=== PATIENT | female | born 2000 | race African-American/Black ===

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

== ENCOUNTER 2018-01-31 21:18 | Emergency (ER) | payer MEDICAID ==
[2018-01-31 23:38] LABS: ABSOLUTE BASOPHILS # (AUTO) 0.1 10^3/uL (0.0-0.2); ABSOLUTE EOSINOPHILS # (AUTO) 1.1 10^3/uL (0.0-0.6); ABSOLUTE LYMPHOCYTES (AUTO) 2.7 10^3/uL (0.5-4.7); ABSOLUTE MONOCYTES (AUTO) 0.8 10^3/uL (0.1-1.4); ABSOLUTE NEUT (AUTO) 4.4 10^3/uL (1.7-8.2); BASOPHILS % (AUTO) 0.8 % (0-2); EOSINOPHILS % (AUTO) 12.5 % (0-6); HEMATOCRIT 36.2 % (36.0-47.0); HEMOGLOBIN 12.1 g/dL (12.0-15.5); MEAN CORPUSCULAR HEMOGLOBIN 29.6 pg (27.0-33.4); MEAN CORPUSCULAR HGB CONC 33.5 g/dL (32.0-36.0); MEAN CORPUSCULAR VOLUME 88 fl (80-97); MONOCYTES % (AUTO) 8.4 % (3-13); PLATELET COUNT 287 10^3/uL (150-450); RED CELL DISTRIBUTION WIDTH 13.4 % (11.5-14.0); SEGMENTED NEUTROPHILS % (AUTO) 48.3 % (42-78); TOTAL CELLS COUNTED % (AUTO) 100 %; WHITE BLOOD COUNT 9.1 10^3/uL (4.0-10.5)
[2018-01-31 23:57] LABS: ALANINE AMINOTRANSFERASE 19 U/L (5-35); ALBUMIN 4.7 g/dL (3.7-5.6); ALKALINE PHOSPHATASE 67 U/L (50-135); ANION GAP 8 (5-19); ASPARTATE AMINO TRANSFERASE 19 U/L (5-30); BILIRUBIN,DIRECT 0.2 mg/dL (0.0-0.4); BILIRUBIN,TOTAL 0.7 mg/dL (0.2-1.3); BLOOD UREA NITROGEN 6 mg/dL (7-20); CALCIUM 9.9 mg/dL (8.4-10.2); CARBON DIOXIDE 26 mmol/L (22-30); CHLORIDE 107 mmol/L (98-107); GLUCOSE 107 mg/dL (75-110); POTASSIUM 3.6 mmol/L (3.6-5.0); SODIUM 141.2 mmol/L (137-145)
[2018-01-31 23:58] LABS: LIPASE 47.8 U/L (23-300)
--- NOTE | 2018-02-01 00:02 | ER Document Report ---
ED Medical Screen (RME) - General Chief Complaint: Pelvic Pain Stated Complaint: STOMACH/PELVIC PAIN Time Seen by Provider: 01/31/18 23:57 Notes: 17-year-old female, chief complaint of worsening pelvic and lower abdominal pain for the past 3 days, does report some vaginal discharge and dysuria, denies fever, nausea vomiting. Sexually active. No surgeries or medical history reported. TRAVEL OUTSIDE OF THE [place] IN LAST 30 DAYS: No - Related Data Allergies/Adverse Reactions: No Known Allergies Allergy (Unverified 02/09/17 04:30) Past Medical History Renal/ Medical History: Denies: Hx Peritoneal Dialysis Physical Exam - Vital signs Vitals: Temp Pulse Resp BP Pulse Ox 98.3 F 91 H 16 139/87 H 100 01/31/18 21:44 01/31/18 21:44 01/31/18 21:44 01/31/18 21:44 01/31/18 21:44 - Abdominal Tenderness: Tender - Generalized suprapubic and lower abdominal tenderness, no guarding or severe tenderness, exam limited by sitting position Course - Re-evaluation Re-evalutation: Protocol had already been put in and is running. I have greeted and performed a rapid initial assessment of this patient. A comprehensive ED assessment and evaluation of the patient, analysis of test results and completion of the medical decision making process will be conducted by additional ED providers. - Vital Signs Vital signs: Temp Pulse Resp BP Pulse Ox 98.3 F 91 H 16 139/87 H 100 01/31/18 21:44 01/31/18 21:44 01/31/18 21:44 01/31/18 21:44 01/31/18 21:44 - Laboratory Result Diagrams: 01/31/18 23:27 01/31/18 23:27 Laboratory results interpreted by me: 01/31/18 01/31/18 23:27 23:27 Eosinophils % 12.5 H Absolute Eosinophils 1.1 H BUN 6 L Doctor's Discharge - Discharge Referrals: MAXINE LOPEZ MD [Primary Care Provider] - Follow up as needed
[2018-02-01 00:21] LABS: APPEARANCE,URINE CLEAR; BILIRUBIN,URINE NEGATIVE (NEGATIVE); GLUCOSE, URINE NEGATIVE (NEGATIVE); KETONES,URINE TRACE mg/dL (NEGATIVE); LEUKOCYTE ESTERASE,URINE SMALL (NEGATIVE); NITRITE,URINE NEGATIVE (NEGATIVE); PROTEIN,URINE NEGATIVE (NEGATIVE); URINE SPECIFIC GRAVITY 1.027
[2018-02-01 00:23] LABS: COLOR,URINE YELLOW
[2018-02-01 01:45] LABS: BACTERIA (WET MOUNT) 3+ BACTERIA SEEN; EPITHELIALS (WET MOUNT) 3+ EPITHELIALS SEEN; RBCS (WET MOUNT) 1+ RBCS SEEN; T.VAGINALIS (WET MOUNT) NO TRICHOMONAS SEEN; WBCS (WET MOUNT) 3+ WBCS SEEN; YEAST (WET MOUNT) NO YEAST SEEN
[2018-02-01] MEDS ORDERED: CEFTRIAXONE INJ 250 MG VIAL IM ONE (01:54)
[2018-02-01] MEDS ORDERED: LIDOCAINE 1% INJ-PF (10 MG/ML) 30 ML SDV INJ ONE (01:54)
[2018-02-01] MEDS ORDERED: VALACYCLOVIR HCL 500 MG TABLET PO ONE (01:54)
[2018-02-01] MEDS ORDERED: AZITHROMYCIN 250 MG TABLET PO ONE (01:54)
--- NOTE | 2018-02-01 01:57 | ER Document Report ---
ED General - General Chief Complaint: Pelvic Pain Stated Complaint: STOMACH/PELVIC PAIN Time Seen by Provider: 01/31/18 23:57 Notes: Patient is a 17-year-old female without past medical history, no prior surgical history who presents with approximately 1 week of progressively worsening vaginal and pelvic pain. The patient reports that shortly after having intercourse with her significant other she began to develop ulcerating external and internal vaginal lesions that are noted to be extremely painful. She describes the pain as a burning, stinging sensation. Pain is worsened by any touching of the area. Nothing improves the pain. She denies any history of similar symptoms in the past. She also notes a cramping, aching pain to her lower pelvic region. Again nothing improves or worsens this pain. She has not seen her general doctor regarding today's concerns. She denies any fever or constitutional symptoms. No dysuria or vaginal bleeding. TRAVEL OUTSIDE OF THE [place] IN LAST 30 DAYS: No - Related Data Allergies/Adverse Reactions: No Known Allergies Allergy (Unverified 02/09/17 04:30) Past Medical History - General Information source: Patient - Social History Smoking Status: Never Smoker Frequency of alcohol use: None Drug Abuse: None Lives with: Family Family History: Reviewed & Not Pertinent Patient has suicidal ideation: No Patient has homicidal ideation: No Renal/ Medical History: Denies: Hx Peritoneal Dialysis Review of Systems - Review of Systems Notes: Constitutional: Negative for fever. HENT: Negative for sore throat. Eyes: Negative for visual changes. Cardiovascular: Negative for chest pain. Respiratory: Negative for shortness of breath. Gastrointestinal: Negative for abdominal pain, vomiting or diarrhea. Genitourinary: Positive for vaginal lesions and pelvic pain Musculoskeletal: Negative for back pain. Skin: Negative for rash. Neurological: Negative for headaches, weakness or numbness. 10 point ROS negative except as marked above and in HPI. Physical Exam - Vital signs Vitals: Temp Pulse Resp BP Pulse Ox 98.3 F 91 H 16 139/87 H 100 01/31/18 21:44 01/31/18 21:44 01/31/18 21:44 01/31/18 21:44 01/31/18 21:44 Interpretation: Normal Notes: PHYSICAL EXAMINATION: GENERAL: Well-appearing, well-nourished and in no acute distress. HEAD: Atraumatic, normocephalic. EYES: Pupils equal round and reactive to light, extraocular movements intact, sclera anicteric, conjunctiva are normal. ENT: nares patent, oropharynx clear without exudates. Moist mucous membranes. NECK: Normal range of motion, supple without lymphadenopathy LUNGS: Breath sounds clear to auscultation bilaterally and equal. No wheezes rales or rhonchi. HEART: Regular rate and rhythm without murmurs ABDOMEN: Soft, nontender, normoactive bowel sounds. No guarding, no rebound. No masses appreciated. : Multiple vesicular, herpetic lesions on the labia majora and minora bilaterally. Pelvic examination shows several vesicular lesions on the vaginal introitus. No cervical lesions or bleeding. No cervical motion tenderness. No adnexal tenderness. EXTREMITIES: Normal range of motion, no pitting or edema. No cyanosis. NEUROLOGICAL: No focal neurological deficits. Moves all extremities spontaneously and on command. PSYCH: Normal mood, normal affect. SKIN: Warm, Dry, normal turgor, no rashes or lesions noted. Course - Re-evaluation Re-evalutation: 02/01/18 01:56 Patient presents with complaints of vaginal and pelvic pain that started approximately several days after she had intercourse with her boyfriend that has been getting progressively worse. Patient is noted to have findings consistent with genital herpes on pelvic examination. No cervical motion tenderness or adnexal tenderness. No abdominal tenderness on palpation to suggest tubo-ovarian abscess or pelvic inflammatory disease. Clinical history and exam likewise not notable for findings consistent with appendicitis. She has no upper abdominal tenderness to suggest biliary pathology, pancreatitis, gastritis. Patient has been started on valacyclovir, empirically treated for gonorrhea and chlamydia. I instructed her follow-up with health department for sexual transmitted infection testing. At this time will discharge with return precautions and follow-up recommendations. Verbal discharge instructions given a the bedside and opportunity for questions given. Medication warnings reviewed. Patient is in agreement with this plan and has verbalized understanding of return precautions and the need for primary care follow-up in the next 24-72 hours. - Vital Signs Vital signs: Temp Pulse Resp BP Pulse Ox 97.8 F 88 16 124/81 99 02/01/18 02:16 02/01/18 02:16 01/31/18 21:44 02/01/18 02:16 02/01/18 02:16 - Laboratory Result Diagrams: 01/31/18 23:27 01/31/18 23:27 Laboratory results interpreted by me: 01/31/18 01/31/18 02/01/18 23:27 23:27 00:07 Eosinophils % 12.5 H Absolute Eosinophils 1.1 H BUN 6 L Urine Ketones TRACE H Urine Urobilinogen 4.0 H Ur Leukocyte Esterase SMALL H Discharge - Discharge Clinical Impression: Pelvic pain, Vaginal discharge Genital herpes Qualifiers: Herpes simplex infection site: vulvovaginitis Qualified Code(s): A60.04 - Herpesviral vulvovaginitis Condition: Good Disposition: HOME, SELF-CARE Additional Instructions: You need to use protection every time you have sex. Failure to do so can result in transmission of infections or unintended . You have been treated for an sexually transmitted infection (STI) today. All of your partners should be tested and treated as they are also likely to be infected. Please return if you develop abdominal pain, fever, persistent vomiting, or any other symptoms that are concerning to you. Please follow-up at the local health department for STI testing. Address: [address] [place] [address] Hours: Sun-Sun 8am-4pm Thurs 12p-4p Fri 8a-4p Prescriptions: Valacyclovir HCl [Valacyclovir] 1,000 mg PO BID #20 tablet Referrals: MAXINE LOPEZ MD [Primary Care Provider] - Follow up as needed
[2018-02-01 02:23] VITALS: BP 124/81
[2018-02-01 03:15] LABS: CHLAM PCR NOT DETECTED (NOT DETECT); GON PCR NOT DETECTED (NOT DETECT)
== END 2018-02-01 02:23 | disposition home or self-care (01) ==
LOC: ER 21:18
DX: A60.04 Herpesviral vulvovaginitis (principal); N89.8 Other specified noninflammatory disorders of vagina; R10.2 Pelvic and perineal pain
CPT/HCPCS: 99284; 96372; 36415; 87210; 83690; 84703; 85025; 80053; 81001; 87491; 87591; Q0144; J3490 ×2; J0696

== ENCOUNTER 2018-09-01 00:21 | Emergency (ER) | payer MEDICAID ==
[2018-09-01 00:28] VITALS: BP 154/97
[2018-09-01] MEDS ORDERED: NORMAL SALINE 1000 ML 1,000 ML IV ONE ×2 (00:44→01:41)
--- NOTE | 2018-09-01 00:48 | ER Document Report ---
ED General - General Chief Complaint: Abdominal Pain Stated Complaint: ABDOMINAL PAIN/ Time Seen by Provider: 09/01/18 00:36 Primary Care Provider: [facility] [Provider Group] - Follow up in 3-5 days MAXINE LOPEZ MD [Primary Care Provider] - Follow up as needed LISA COLLINS MD [ACTIVE STAFF] - 09/02/18 TRAVEL OUTSIDE OF THE [place] IN LAST 30 DAYS: No - HPI Notes: Patient is a 18-year-old female at 12 weeks gestation that presents to the emergency department for chief complaint of palpitations and vaginal bleeding. Patient reports about 8 episodes of palpitations. She states that she will be up walking around or sitting at rest and feel her heart began to race. She states it beats very fast for about 3-4 minutes and then completely resolves. When her heart is racing she feels associated lightheadedness but has not had any syncope. She denies history of dysrhythmia or palpitations in the past. She denies history of anxiety or panic attacks previously. She is currently asymptomatic. She denies associated chest pain, fevers, cough and congestion. She states this evening she had one episode of pink vaginal bleeding. She has not had any complications with this and has had early ultrasound to confirm single intrauterine gestation. Patient believes the bleeding has currently stopped. She denies any other vaginal discharge, abdominal pain, back pain, dysuria or urinary frequency. She denies any family history of DVT/PE or cardiac issues. Past Medical History: Negative Past Surgical History: Negative Social History: Denies drugs alcohol and tobacco Family History: Reviewed and noncontributory for presenting illness Allergies: Reviewed, see documented allergy list. REVIEW OF SYSTEMS: CONSTITUTIONAL : No fever No chills No diaphoresis No recent illness EENT: No vision changes No congestion No sore throat CARDIOVASCULAR: No chest pain palpitations RESPIRATORY: No shortness of breath No cough No difficulty breathing GASTROINTESTINAL: No abdominal pain No nausea No vomiting No diarrhea GENITOURINARY: No dysuria No hematuria No difficulty urinating MUSCULOSKELETAL: No back pain No leg pain No arm pain SKIN: No rashes No lesions LYMPHATIC: No swollen, enlarged glands. NEUROLOGICAL: lightheadedness No headache No weakness No paresthesias PSYCHIATRIC: No anxiety No depression PHYSICAL EXAMINATION: Vital signs reviewed, nursing noted reviewed. GENERAL: Well-appearing, well-nourished and in no acute distress. HEAD: Atraumatic, normocephalic. EYES: Eyes appear normal, extraocular movements intact, sclera anicteric, conjunctiva are normal. ENT: nares patent, oropharynx clear without exudates. Moist mucous membranes. NECK: Normal range of motion, supple without lymphadenopathy LUNGS: Breath sounds clear to auscultation bilaterally and equal. No wheezes rales or rhonchi. HEART: Tachycardic rate and regular rhythm without murmurs ABDOMEN: Soft, mild suprapubic tenderness, uterus palpated just above pubic symphysis and is soft, normoactive bowel sounds. No rebound, guarding, or rigidity. No masses appreciated. EXTREMITIES: Nontender, good range of motion, no pitting or edema. NEUROLOGICAL: No focal neurological deficits. Moves all extremities spontaneously Motor and sensory grossly intact on exam. PSYCH: Normal mood, normal affect. SKIN: Warm, Dry, normal turgor, no rashes or lesions noted on exposed skin - Related Data Allergies/Adverse Reactions: No Known Allergies Allergy (Verified 09/01/18 00:22) Past Medical History - Social History Smoking Status: Never Smoker Family History: Reviewed & Not Pertinent Renal/ Medical History: Denies: Hx Peritoneal Dialysis Physical Exam - Vital signs Vitals: Temp Pulse Resp BP Pulse Ox 98.6 F 124 H 16 154/97 H 99 09/01/18 00:27 09/01/18 00:27 09/01/18 00:27 09/01/18 00:27 09/01/18 00:27 Course - Re-evaluation Re-evalutation: 09/01/18 00:47 Vitals reviewed. Nursing notes reviewed. Patient states she is currently asymptomatic but is tachycardic with a sinus rhythm on EKG. 09/01/18 01:49 Patient reevaluated. She has not had any concerns of palpitations since being in the emergency room. She states she has been asymptomatic since arrival but feels improved generally after receiving 1 L of fluid. Her heart rate has been tachycardic since presentation but is improving with IV fluids. 09/01/18 03:39 Patient reevaluated and is feeling significantly better. She states she has not had any palpitations while in the emergency room. Her thyroid levels are normal. Her blood work shows no renal insufficiency. She was mildly hypokalemic and was given potassium and encouraged to eat potassium rich foods. Patient does have a urinary tract infection that will be treated with Macrobid, the first dose given in the ER. Ultrasound shows single live intrauterine gestation without complications. Patient was given Dr. Collins's phone number and told to follow-up tomorrow if she continues to have palpitations. She will return to the emergency room for any new or worsening symptoms. She will follow with her [facility] for her vaginal bleeding and UTI. She did receive RhoGam prior to discharge today. Laboratory 09/01/18 09/01/18 09/01/18 00:55 00:55 00:55 WBC 13.6 H RBC 4.03 Hgb 12.3 Hct 35.3 L MCV 88 MCH 30.5 MCHC 34.8 RDW 13.4 Plt Count 293 Seg Neutrophils % 64.9 Lymphocytes % 23.0 Monocytes % 6.7 Eosinophils % 5.1 Basophils % 0.3 Absolute Neutrophils 8.8 H Absolute Lymphocytes 3.1 Absolute Monocytes 0.9 Absolute Eosinophils 0.7 H Absolute Basophils 0.0 Sodium 139.1 Potassium 3.4 L Chloride 108 H Carbon Dioxide 18 L Anion Gap 13 BUN 9 Creatinine 0.63 Est GFR ( Amer) > 60 Est GFR (Non-Af Amer) > 60 Glucose 85 Calcium 10.6 H TSH 0.89 Urine Color Urine Appearance Urine pH Ur Specific [place] Urine Protein Urine Glucose (UA) Urine Ketones Urine Blood Urine Nitrite Urine Bilirubin Urine Urobilinogen Ur Leukocyte Esterase Urine WBC (Auto) Urine RBC (Auto) Squamous Epi Cells Auto Calcium Oxalate Cr Auto Urine Mucus (Auto) Urine Ascorbic Acid Blood Type Antibody Screen Rhogam Indicated 09/01/18 09/01/18 01:23 01:55 WBC RBC Hgb Hct MCV MCH MCHC RDW Plt Count Seg Neutrophils % Lymphocytes % Monocytes % Eosinophils % Basophils % Absolute Neutrophils Absolute Lymphocytes Absolute Monocytes Absolute Eosinophils Absolute Basophils Sodium Potassium Chloride Carbon Dioxide Anion Gap BUN Creatinine Est GFR ( Amer) Est GFR (Non-Af Amer) Glucose Calcium TSH Urine Color YELLOW Urine Appearance SLIGHTLY-CLOUDY Urine pH 5.0 Ur Specific [place] 1.026 Urine Protein NEGATIVE Urine Glucose (UA) NEGATIVE Urine Ketones 20 H Urine Blood NEGATIVE Urine Nitrite NEGATIVE Urine Bilirubin NEGATIVE Urine Urobilinogen 4.0 H Ur Leukocyte Esterase LARGE H Urine WBC (Auto) 8 Urine RBC (Auto) 3 Squamous Epi Cells Auto 3 Calcium Oxalate Cr Auto FEW Urine Mucus (Auto) OCC Urine Ascorbic Acid NEGATIVE Blood Type O NEGATIVE Antibody Screen NEGATIVE Rhogam Indicated RHOGAM REQUESTED Obstetrics Ultrasound 09/01/18 00:43 IMPRESSION: Living 1st trimester intrauterine gestation. No sonographic evidence of complication. - Vital Signs Vital signs: Temp Pulse Resp BP Pulse Ox 98.6 F 124 H 16 154/97 H 99 09/01/18 00:27 09/01/18 00:27 09/01/18 00:27 09/01/18 00:27 09/01/18 00:27 - Laboratory Result Diagrams: 09/01/18 00:55 09/01/18 00:55 Laboratory results interpreted by me: 09/01/18 09/01/18 09/01/18 00:55 00:55 01:55 WBC 13.6 H Hct 35.3 L Absolute Neutrophils 8.8 H Absolute Eosinophils 0.7 H Potassium 3.4 L Chloride 108 H Carbon Dioxide 18 L Calcium 10.6 H Urine Ketones 20 H Urine Urobilinogen 4.0 H Ur Leukocyte Esterase LARGE H - EKG Interpretation by Me Additional EKG results interpreted by me: 09/01/18 00:47 Interpreted by myself [id number]: Sinus tachycardia, rate 113, normal axis, no ectopy, no delta waves Discharge - Discharge Clinical Impression: Heart palpitations, Lightheadedness, Vaginal bleeding during , Acute UTI Condition: Stable Disposition: HOME, SELF-CARE Instructions: Palpitations (Irregular or Rapid Heartrate) ([facility]), Rhogam ([facility]), Threatened Miscarriage ([facility]), Urinary Tract Infection ([facility]) Additional Instructions: Please return to the emergency department if you have any worsening, or concern of your symptoms. Please return to the emergency department if you develop chest pain, difficulty breathing, severe abdominal pain, or ongoing vomiting. Please follow-up with your primary care physician in 2-3 days and any other recommended physicians. If prescribed, take all medications as directed. If you have any questions or concerns do not hesitate to return the emergency department for evaluation. Prescriptions: Nitrofurantoin Macrocrystal [Macrodantin] 100 mg PO Q6 10 Days capsule Referrals: MAXINE LOPEZ MD [Primary Care Provider] - Follow up as needed LISA COLLINS MD [ACTIVE STAFF] - 09/02/18 [facility] [Provider Group] - Follow up in 3-5 days
[2018-09-01 01:22] LABS: ANION GAP 13 (5-19); BLOOD UREA NITROGEN 9 mg/dL (7-20); CALCIUM 10.6 mg/dL (8.4-10.2); CARBON DIOXIDE 18 mmol/L (22-30); CHLORIDE 108 mmol/L (98-107); GLUCOSE 85 mg/dL (75-110); POTASSIUM 3.4 mmol/L (3.6-5.0); SODIUM 139.1 mmol/L (137-145)
[2018-09-01 01:27] LABS: ABSOLUTE EOSINOPHILS # (AUTO) 0.7 10^3/uL (0.0-0.6); ABSOLUTE LYMPHOCYTES (AUTO) 3.1 10^3/uL (0.5-4.7); ABSOLUTE MONOCYTES (AUTO) 0.9 10^3/uL (0.1-1.4); ABSOLUTE NEUT (AUTO) 8.8 10^3/uL (1.7-8.2); BASOPHILS % (AUTO) 0.3 % (0-2); EOSINOPHILS % (AUTO) 5.1 % (0-6); HEMATOCRIT 35.3 % (36.0-47.0); HEMOGLOBIN 12.3 g/dL (12.0-15.5); MEAN CORPUSCULAR HEMOGLOBIN 30.5 pg (27.0-33.4); MEAN CORPUSCULAR HGB CONC 34.8 g/dL (32.0-36.0); MEAN CORPUSCULAR VOLUME 88 fl (80-97); MONOCYTES % (AUTO) 6.7 % (3-13); PLATELET COUNT 293 10^3/uL (150-450); RED BLOOD COUNT 4.03 10^6/uL (3.72-5.28); RED CELL DISTRIBUTION WIDTH 13.4 % (11.5-14.0); SEGMENTED NEUTROPHILS % (AUTO) 64.9 % (42-78); TOTAL CELLS COUNTED % (AUTO) 100 %; WHITE BLOOD COUNT 13.6 10^3/uL (4.0-10.5)
[2018-09-01] MEDS ORDERED: POTASSIUM CHLORIDE 10 MEQ CAPSULE.ER PO ONE (01:29)
[2018-09-01 03:05] LABS: APPEARANCE,URINE SLIGHTLY-CLOUDY; BILIRUBIN,URINE NEGATIVE (NEGATIVE); CALCIUM OXALATE CRYSTALS,URINE FEW /HPF; COLOR,URINE YELLOW; GLUCOSE, URINE NEGATIVE (NEGATIVE); KETONES,URINE 20 mg/dL (NEGATIVE); LEUKOCYTE ESTERASE,URINE LARGE (NEGATIVE); NITRITE,URINE NEGATIVE (NEGATIVE); PROTEIN,URINE NEGATIVE (NEGATIVE); URINE SPECIFIC GRAVITY 1.026
--- NOTE | 2018-09-01 03:32 | RADIOLOGY REPORT (SQ) ---
EXAM DESCRIPTION: US LESS THAN 14 WEEKS COMPLETED DATE/TME: 09/01/2018 00:43 CLINICAL HISTORY: 18 years Female, vaginal bleeding COMPARISON: None TECHNIQUE: Transvaginal. LIMITATIONS: None. FINDINGS: Living intrauterine fetus measures 12w4d with YOSELIN of 03/12/2019. Cardiac activity is 173-bpm. [place]-rump length 6.19-cm. Nonvisualized ovaries, 3.2-cm cervical length, and no discerned free fluid. IMPRESSION: Living 1st trimester intrauterine gestation. No sonographic evidence of complication.
--- NOTE | 2018-09-01 09:51 | EKG REPORT ---
SEVERITY:- BORDERLINE ECG - SINUS TACHYCARDIA BORDERLINE T ABNORMALITIES, INFERIOR LEADS : Confirmed by: Eddie Moulton MD 01-Sep-2018 09:50:48
== END 2018-09-01 04:23 | disposition home or self-care (01) ==
LOC: ER 00:21
DX: O46.91 Antepartum hemorrhage, unspecified, first trimester (principal); O23.41 Unspecified infection of urinary tract in pregnancy, first trimester; O26.891 Other specified pregnancy related conditions, first trimester; R10.9 Unspecified abdominal pain; R00.2 Palpitations; R42 Dizziness and giddiness; Z3A.12 12 weeks gestation of pregnancy
CPT/HCPCS: 93005; 99284; 96372; 96360; 86900; 86901; 36415; 86850; 84443; 85025; 80048; 81001; 76801; 93010; J2790; J7030

== ENCOUNTER 2018-11-30 22:47 | Outpatient (CLI) | payer MEDICAID ==
[2018-11-30] MEDS ORDERED: ONDANSETRON HCL INJ/PF 4 MG/2 ML SDV IV PRN (23:02)
[2018-11-30 23:24] LABS: ABSOLUTE BASOPHILS # (AUTO) 0.1 10^3/uL (0.0-0.2); ABSOLUTE EOSINOPHILS # (AUTO) 0.5 10^3/uL (0.0-0.6); ABSOLUTE LYMPHOCYTES (AUTO) 2.5 10^3/uL (0.5-4.7); ABSOLUTE MONOCYTES (AUTO) 0.8 10^3/uL (0.1-1.4); ABSOLUTE NEUT (AUTO) 8.6 10^3/uL (1.7-8.2); BASOPHILS % (AUTO) 0.4 % (0-2); EOSINOPHILS % (AUTO) 4.2 % (0-6); HEMATOCRIT 30.3 % (36.0-47.0); HEMOGLOBIN 10.2 g/dL (12.0-15.5); LYMPHOCYTES % (AUTO) 19.8 % (13-45); MEAN CORPUSCULAR HEMOGLOBIN 30.5 pg (27.0-33.4); MEAN CORPUSCULAR HGB CONC 33.8 g/dL (32.0-36.0); MEAN CORPUSCULAR VOLUME 90 fl (80-97); MONOCYTES % (AUTO) 6.5 % (3-13); PLATELET COUNT 218 10^3/uL (150-450); RED BLOOD COUNT 3.36 10^6/uL (3.72-5.28); SEGMENTED NEUTROPHILS % (AUTO) 69.1 % (42-78); TOTAL CELLS COUNTED % (AUTO) 100 %; WHITE BLOOD COUNT 12.5 10^3/uL (4.0-10.5)
[2018-11-30 23:28] LABS: BACTERIA (WET MOUNT) 4+ BACTERIA SEEN; EPITHELIALS (WET MOUNT) 4+ EPITHELIALS SEEN; RBCS (WET MOUNT) NO RBCS SEEN; T.VAGINALIS (WET MOUNT) NO TRICHOMONAS SEEN; WBCS (WET MOUNT) 3+ WBCS SEEN; YEAST (WET MOUNT) NO YEAST SEEN
[2018-11-30 23:39] LABS: CALCIUM OXALATE CRYSTALS,URINE FEW /HPF
[2018-11-30 23:41] LABS: APPEARANCE,URINE HAZY; BILIRUBIN,URINE NEGATIVE (NEGATIVE); COLOR,URINE YELLOW; GLUCOSE, URINE NEGATIVE (NEGATIVE); KETONES,URINE NEGATIVE (NEGATIVE); LEUKOCYTE ESTERASE,URINE TRACE (NEGATIVE); NITRITE,URINE NEGATIVE (NEGATIVE); PROTEIN,URINE 30 mg/dL (NEGATIVE); URINE SPECIFIC GRAVITY 1.025
[2018-11-30 23:41] LABS: ALANINE AMINOTRANSFERASE 16 U/L (9-52); ALBUMIN 3.8 g/dL (3.5-5.0); ALKALINE PHOSPHATASE 71 U/L (38-126); AMYLASE 76 U/L (30-110); ANION GAP 10 (5-19); ASPARTATE AMINO TRANSFERASE 23 U/L (14-36); BILIRUBIN,DIRECT 0.1 mg/dL (0.0-0.4); BILIRUBIN,TOTAL 0.4 mg/dL (0.2-1.3); BLOOD UREA NITROGEN 6 mg/dL (7-20); CALCIUM 9.7 mg/dL (8.4-10.2); CARBON DIOXIDE 21 mmol/L (22-30); CHLORIDE 107 mmol/L (98-107); GLUCOSE 79 mg/dL (75-110); LIPASE 27.7 U/L (23-300); POTASSIUM 3.5 mmol/L (3.6-5.0); SODIUM 137.7 mmol/L (137-145); TOTAL PROTEIN 6.8 g/dL (6.3-8.2)
[2018-11-30] MEDS ORDERED: RINGERS SOLUTION,LACTATED 1,000 ML IV ONE (23:42)
[2018-11-30] MEDS ORDERED: RINGERS SOLUTION,LACTATED 1,000 ML IV PRN (23:42)
[2018-11-30] MEDS ORDERED: ONDANSETRON HCL INJ/PF 4 MG/2 ML SDV ONE (23:43)
[2018-11-30] MEDS ORDERED: FLUCONAZOLE 100 MG TABLET PO ONE (23:45)
[2018-11-30 23:54] LABS: URINE AMPHETAMINES SCREEN NEGATIVE; URINE BARBITURATES SCREEN NEGATIVE; URINE BENZODIAZEPINES SCREEN NEGATIVE; URINE COCAINE SCREEN NEGATIVE; URINE MARIJUANA (THC) SCREEN NEGATIVE; URINE METHADONE SCREEN NEGATIVE; URINE PHENCYCLIDINE SCREEN NEGATIVE
[2018-12-01 00:50] LABS: CHLAM PCR NOT DETECTED (NOT DETECT)
[2018-12-01] MEDS ORDERED: FLUCONAZOLE 100 MG TABLET ONE (01:25)
--- NOTE | 2018-12-01 01:47 | RADIOLOGY REPORT (SQ) ---
EXAM DESCRIPTION: US LIMITED COMPLETED DATE/TME: 11/30/2018 00:00 CLINICAL HISTORY: Pain. 18 years Female, cervical length Comparison: None. TECHNIQUE/LIMITATION: Targeted OB sonogram for requested parameters only. FINDINGS: Single IUP EGA is 26w0d with YOSELIN of 03/09/19 EFW is 866g at 50% (Milind) Cardiac activity: 162-bpm. CARLOS A: 11.9-cm Placenta: Posterior. No demonstrated abruption or previa. Presentation: Vertex Cervical length: 3.9-cm. Closed appearance. IMPRESSION: Targeted OB sonogram for requested parameters
== END 2018-12-01 02:05 | disposition home or self-care (01) ==
LOC: LC 22:47
PROVIDERS: ATTEND Student in an Organized Health Care Education/Training Program
PROC: 4A1HXCZ Monitoring of Products of Conception, Cardiac Rate, External Approach (ICD-10-PCS; principal; 2018-11-30)
DX: O47.02 False labor before 37 completed weeks of gestation, second trimester (principal); Z3A.25 25 weeks gestation of pregnancy
CPT/HCPCS: 36415; 87086; 87210; 82150; 83690; 85025; 80053; 81001; 80307; 87491; 87591; 76815; 59899; J2405; J3490

== ENCOUNTER 2019-01-05 15:04 | Inpatient (IN) | payer MEDICAID ==
[2019-01-05] MEDS ORDERED: NORMAL SALINE 1000 ML 1,000 ML IV ONE ×2 (15:21→17:41)
--- NOTE | 2019-01-05 15:25 | ER Document Report ---
ED Medical Screen (RME) - General Chief Complaint: Urinary Problem Stated Complaint: URINARY SYMPTOMS Time Seen by Provider: 01/05/19 15:15 Primary Care Provider: MAXINE LOPEZ MD [Primary Care Provider] - Follow up as needed Mode of Arrival: Ambulatory Information source: Patient Notes: 18-year-old female presents to ED for complaint of burning with urination urg ency and frequency with urination flank pain nausea and vomiting. She states her temperature yesterday was 102. She is 30 weeks 1 para 0. She denies smoking drinking or doing any drugs. She states the pain is to her right flank going down the right abdomen to the pelvic area. She states she has been having a hard time keeping down fluids today because she is been nauseated with vomiting. Patient is alert oriented respirations regular and unlabored speaking in full sentences. I have greeted and performed a rapid initial assessment of this patient. A comprehensive ED assessment and evaluation of the patient, analysis of test results and completion of medical decision making process will be conducted by an additional ED providers. Dictation of this chart was performed using voice recognition software; therefore, there may be some unintended grammatical errors. TRAVEL OUTSIDE OF THE [place] IN LAST 30 DAYS: No - Related Data Allergies/Adverse Reactions: No Known Allergies Allergy (Verified 12/01/18 00:18) Past Medical History Renal/ Medical History: Denies: Hx Peritoneal Dialysis Physical Exam - Vital signs Vitals: Temp Pulse Resp BP Pulse Ox 98.1 F 124 H 18 125/74 98 01/05/19 15:08 01/05/19 15:08 01/05/19 15:08 01/05/19 15:08 01/05/19 15:08 Course - Vital Signs Vital signs: Temp Pulse Resp BP Pulse Ox 98.1 F 124 H 18 125/74 98 01/05/19 15:08 01/05/19 15:08 01/05/19 15:08 01/05/19 15:08 01/05/19 15:08 Doctor's Discharge - Discharge Referrals: MAXINE LOPEZ MD [Primary Care Provider] - Follow up as needed
[2019-01-05 16:05] LABS: ABSOLUTE EOSINOPHILS # (AUTO) 0.2 10^3/uL (0.0-0.6); ABSOLUTE LYMPHOCYTES (AUTO) 1.2 10^3/uL (0.5-4.7); ABSOLUTE MONOCYTES (AUTO) 0.8 10^3/uL (0.1-1.4); ABSOLUTE NEUT (AUTO) 6.9 10^3/uL (1.7-8.2); BASOPHILS % (AUTO) 0.4 % (0-2); HEMATOCRIT 28.7 % (36.0-47.0); HEMOGLOBIN 9.8 g/dL (12.0-15.5); MEAN CORPUSCULAR HEMOGLOBIN 30.5 pg (27.0-33.4); MEAN CORPUSCULAR HGB CONC 34.1 g/dL (32.0-36.0); MEAN CORPUSCULAR VOLUME 90 fl (80-97); MONOCYTES % (AUTO) 8.7 % (3-13); PLATELET COUNT 224 10^3/uL (150-450); RED BLOOD COUNT 3.21 10^6/uL (3.72-5.28); RED CELL DISTRIBUTION WIDTH 14.2 % (11.5-14.0); SEGMENTED NEUTROPHILS % (AUTO) 75.9 % (42-78); TOTAL CELLS COUNTED % (AUTO) 100 %; WHITE BLOOD COUNT 9.1 10^3/uL (4.0-10.5)
[2019-01-05 16:22] LABS: ALBUMIN 3.5 g/dL (3.5-5.0); ALKALINE PHOSPHATASE 104 U/L (38-126); ANION GAP 10 (5-19); ASPARTATE AMINO TRANSFERASE 15 U/L (14-36); BILIRUBIN,DIRECT 0.2 mg/dL (0.0-0.4); BILIRUBIN,TOTAL 0.5 mg/dL (0.2-1.3); BLOOD UREA NITROGEN 5 mg/dL (7-20); CALCIUM 9.1 mg/dL (8.4-10.2); CARBON DIOXIDE 18 mmol/L (22-30); CHLORIDE 110 mmol/L (98-107); GLUCOSE 122 mg/dL (75-110); POTASSIUM 3.4 mmol/L (3.6-5.0); TOTAL PROTEIN 6.3 g/dL (6.3-8.2)
[2019-01-05 16:24] LABS: APPEARANCE,URINE CLOUDY; BILIRUBIN,URINE NEGATIVE (NEGATIVE); COLOR,URINE YELLOW; GLUCOSE, URINE >=500 mg/dL (NEGATIVE); KETONES,URINE 80 mg/dL (NEGATIVE); LEUKOCYTE ESTERASE,URINE LARGE (NEGATIVE); NITRITE,URINE NEGATIVE (NEGATIVE); PROTEIN,URINE 100 mg/dL (NEGATIVE); URINE SPECIFIC GRAVITY 1.027; UROBILINOGEN,URINE NEGATIVE mg/dL (<2.0)
--- NOTE | 2019-01-05 16:41 | RADIOLOGY REPORT (SQ) ---
EXAM DESCRIPTION: U/S RETROPERITON (RENAL/AORTA) COMPLETED DATE/TIME: 01/05/2019 4:28 pm REASON FOR STUDY: right flankpain 30 weeks COMPARISON: None. TECHNIQUE: Dynamic and static grayscale images acquired of the kidneys and bladder and recorded on P ACS. Additional selected color Doppler and spectral images recorded. LIMITATIONS: None. FINDINGS: RIGHT KIDNEY: Normal size. Normal echogenicity. No solid or suspicious masses. No hydronep hrosis. No calcifications. LEFT KIDNEY: Normal size. Normal echogenicity. No solid or suspicious masses. No hydronephrosis. No calcifications. BLADDER: Partially decompressed. OTHER FINDINGS: heart rate measures 131 beats per minute, vertex position. IMPRESSION: No hydronephrosis. TECHNICAL DOCUMENTATION: JOB ID: [id number] [place]-72 2010 [employer]- All Rights Reserved Reading location - IP/workstation name: [employer]
--- NOTE | 2019-01-05 17:18 | ER Document Report ---
ED GI/ - General Chief Complaint: Urinary Problem Stated Complaint: URINARY SYMPTOMS Time Seen by Provider: 01/05/19 15:15 Primary Care Provider: MAXINE LOPEZ MD [Primary Care Provider] - Follow up as needed Mode of Arrival: Ambulatory Notes: Patient is an otherwise healthy 20-year-old female presenting to the emergency department with chief complaint of fever, vomiting, dysuria and back pain. Patient reports she is 30 weeks . She is a 1 para 0. She sees [facility]. She reports T-max yesterday of 102. She denies any diarrhea, denies any history of urinary tract infections. She reports she is feeling the baby move as per eat her usual. She denies any abnormal vaginal discharge or bleeding. TRAVEL OUTSIDE OF THE [place] IN LAST 30 DAYS: No - Related Data Allergies/Adverse Reactions: No Known Allergies Allergy (Verified 12/01/18 00:18) Past Medical History - General Information source: Patient - Social History Smoking Status: Never Smoker Family History: Reviewed & Not Pertinent Patient has suicidal ideation: No Patient has homicidal ideation: No - Medical History Medical History: Negative Renal/ Medical History: Denies: Hx Peritoneal Dialysis Surgical Hx: Negative - Immunizations Immunizations up to date: Yes Review of Systems - Review of Systems Constitutional: Fever EENT: No symptoms reported Cardiovascular: No symptoms reported Respiratory: No symptoms reported Gastrointestinal: Nausea, Vomiting Genitourinary: Dysuria, Flank pain Female Genitourinary: No symptoms reported Musculoskeletal: No symptoms reported Skin: No symptoms reported Hematologic/Lymphatic: No symptoms reported Neurological/Psychological: No symptoms reported Physical Exam - Vital signs Vitals: Temp Pulse Resp BP Pulse Ox 98.1 F 124 H 18 125/74 98 01/05/19 15:08 01/05/19 15:08 01/05/19 15:08 01/05/19 15:08 01/05/19 15:08 - Notes Notes: PHYSICAL EXAMINATION: GENERAL: Well-appearing, well-nourished and in no acute distress. HEAD: Atraumatic, normocephalic. EYES: Pupils equal round and reactive to light, extraocular movements intact, conjunctiva are normal. ENT: Nares patent, oropharynx clear without exudates. Moist mucous membranes. NECK: Normal range of motion, supple without lymphadenopathy LUNGS: Breath sounds clear to auscultation bilaterally and equal. No wheezes rales or rhonchi. HEART: Regular rate and rhythm without murmurs ABDOMEN: Soft, nontender, nongravid distended abdomen. No guarding, no rebound. No masses appreciated. Female : CVA tenderness bilaterally. Musculoskeletal: Normal range of motion, no pitting or edema. No cyanosis. NEUROLOGICAL: Cranial nerves grossly intact. Normal speech, normal gait. Normal sensory, motor exams PSYCH: Normal mood, normal affect. SKIN: Warm, Dry, normal turgor, no rashes or lesions noted. Course - Re-evaluation Re-evalutation: Labs as recorded. Patient has acute pyelonephritis. He has not vomited here in the emergency department today but she has vomited at least 5 times today at home, she has had T-max of 102 at home. On arrival her heart rate was ranging 124-130. After 1 L of fluid her heart rate has come down to 110-120. I will order a second liter of fluids and initiate IV antibiotics. Urine culture is pending. 01/05/19 18:04 Patient accepted for admission to the hospital for pyelonephritis. [employer] excepting, Dr. Forrest. - Vital Signs Vital signs: Temp Pulse Resp BP Pulse Ox 98.1 F 124 H 18 125/74 98 01/05/19 15:08 01/05/19 15:08 01/05/19 15:08 01/05/19 15:08 01/05/19 15:08 - Laboratory Result Diagrams: 01/05/19 15:38 01/05/19 15:38 Laboratory results interpreted by me: 01/05/19 01/05/19 01/05/19 15:15 15:38 15:38 RBC 3.21 L Hgb 9.8 L Hct 28.7 L RDW 14.2 H Potassium 3.4 L Chloride 110 H Carbon Dioxide 18 L BUN 5 L Creatinine 0.46 L Glucose 122 H Urine Protein 100 H Urine Glucose (UA) >=500 H Urine Ketones 80 H Urine Blood SMALL H Ur Leukocyte Esterase LARGE H Discharge - Discharge Clinical Impression: Pyelonephritis affecting Qualifiers: Trimester: third trimester Qualified Code(s): O23.03 - Infections of kidney in , third trimester Vomiting Qualifiers: Vomiting type: unspecified Vomiting Intractability: unspecified Nausea presence: unspecified Qualified Code(s): R11.10 - Vomiting, unspecified Condition: Stable Disposition: ADMITTED INPATIENT Admitting Provider: [facility] Unit Admitted: Post Referrals: MAXINE LOPEZ MD [Primary Care Provider] - Follow up as needed
[2019-01-05] MEDS ORDERED: CEFTRIAXONE 1 GM/D5W RTU 1 GM/50 ML RTUPB IV ONE (17:20)
[2019-01-05] MEDS ORDERED: METOCLOPRAMIDE HCL INJ/PF 10 MG/2 ML SDV IV ONE (17:41)
[2019-01-05] MEDS ORDERED: CEFTRIAXONE INJ 1000 MG VIAL ONE (17:54)
[2019-01-05] MEDS: DEXTROSE 5%-LACTATED RINGERS 1,000 ML IV PRN (21:19)
[2019-01-05] MEDS: ACETAMINOPHEN 325 MG TABLET PO PRN (22:35)
[2019-01-06] MEDS: DEXTROSE 5%-LACTATED RINGERS 1,000 ML IV PRN ×2 (03:28→22:49)
[2019-01-06] MEDS: CEFTRIAXONE 1 GM/D5W RTU 1 GM/50 ML RTUPB IV SCH ×2 (05:44→17:32)
--- NOTE | 2019-01-06 06:04 | PDOC H&P ---
History of Present Illness Admission Date/PCP: 01/05/19 18:21 MAXINE LOPEZ MD c/o bleeding and burning with urination, stated she has temp 0g 102 Patient complains of: c/o burning with urination amd am elevated temp History of Present Illness: DARLINE MENSAH is a 18 year old female c/o burning with urination and elevated temp. pt is 30 weeks Social History Smoking Status: Never Smoker Frequency of Alcohol Use: None Hx Recreational Drug Use: No Drugs: None Hx Prescription Drug Abuse: No Family History Family History: Reviewed & Not Pertinent Parental Family History Reviewed: Yes Children Family History Reviewed: Yes Sibling(s) Family History Reviewed.: Yes Medication/Allergy Home Medications: Vit,Calc76/Iron/Folic [Pnv 29-1 Tablet] 1 tab PO DAILY 12/01/18 Allergies/Adverse Reactions: No Known Allergies Allergy (Verified 12/01/18 00:18) Physical Exam - Physical Exam Vital Signs: Temp Pulse Resp BP Pulse Ox 98.0 F 100 16 109/54 L 100 01/06/19 03:25 01/06/19 03:25 01/06/19 03:25 01/06/19 03:25 01/06/19 03:25 Intake & Output 01/04/19 01/05/19 01/06/19 06:59 06:59 06:59 Intake Total 1600 Output Total 700 Balance 900 Weight 91.2 kg General appearance: PRESENT: mild distress Respiratory exam: PRESENT: clear to auscultation katy Cardiovascular exam: PRESENT: RRR Result Laboratory Results: 01/05/19 15:38 01/05/19 15:38 01/05/19 01/05/19 01/05/19 15:15 15:38 15:38 WBC 9.1 RBC 3.21 L Hgb 9.8 L Hct 28.7 L MCV 90 MCH 30.5 MCHC 34.1 RDW 14.2 H Plt Count 224 Seg Neutrophils % 75.9 Lymphocytes % 13.0 Monocytes % 8.7 Eosinophils % 2.0 Basophils % 0.4 Absolute Neutrophils 6.9 Absolute Lymphocytes 1.2 Absolute Monocytes 0.8 Absolute Eosinophils 0.2 Absolute Basophils 0.0 Sodium 137.9 Potassium 3.4 L Chloride 110 H Carbon Dioxide 18 L Anion Gap 10 BUN 5 L Creatinine 0.46 L Est GFR ( Amer) > 60 Est GFR (Non-Af Amer) > 60 Glucose 122 H Lactic Acid Calcium 9.1 Total Bilirubin 0.5 AST 15 Alkaline Phosphatase 104 Total Protein 6.3 Albumin 3.5 Urine Color YELLOW Urine Appearance CLOUDY Urine pH 5.0 Ur Specific [place] 1.027 Urine Protein 100 H Urine Glucose (UA) >=500 H Urine Ketones 80 H Urine Blood SMALL H Urine Nitrite NEGATIVE Ur Leukocyte Esterase LARGE H Urine WBC (Auto) 93 Urine RBC (Auto) 20 01/05/19 15:38 WBC RBC Hgb Hct MCV MCH MCHC RDW Plt Count Seg Neutrophils % Lymphocytes % Monocytes % Eosinophils % Basophils % Absolute Neutrophils Absolute Lymphocytes Absolute Monocytes Absolute Eosinophils Absolute Basophils Sodium Potassium Chloride Carbon Dioxide Anion Gap BUN Creatinine Est GFR ( Amer) Est GFR (Non-Af Amer) Glucose Lactic Acid 1.5 Calcium Total Bilirubin AST Alkaline Phosphatase Total Protein Albumin Urine Color Urine Appearance Urine pH Ur Specific [place] Urine Protein Urine Glucose (UA) Urine Ketones Urine Blood Urine Nitrite Ur Leukocyte Esterase Urine WBC (Auto) Urine RBC (Auto) Impressions: Renal Ultrasound 01/05/19 15:22 IMPRESSION: No hydronephrosis. Assessment & Plan - Diagnosis (1) Pyelonephritis affecting Qualifiers: Trimester: third trimester Qualified Code(s): O23.03 - Infections of kidney in , third trimester Is this a current diagnosis for this admission?: Yes - Plan Summary Plan Summary: IV antibiotics/hydration routine care
[2019-01-06 07:12] LABS: HEMATOCRIT 24.3 % (36.0-47.0); HEMOGLOBIN 8.3 g/dL (12.0-15.5); MEAN CORPUSCULAR HEMOGLOBIN 30.5 pg (27.0-33.4); MEAN CORPUSCULAR HGB CONC 34.3 g/dL (32.0-36.0); MEAN CORPUSCULAR VOLUME 89 fl (80-97); PLATELET COUNT 189 10^3/uL (150-450); RED BLOOD COUNT 2.73 10^6/uL (3.72-5.28); RED CELL DISTRIBUTION WIDTH 14.4 % (11.5-14.0)
[2019-01-06 07:32] LABS: ALBUMIN 2.7 g/dL (3.5-5.0); ALKALINE PHOSPHATASE 90 U/L (38-126); ANION GAP 8 (5-19); ASPARTATE AMINO TRANSFERASE 12 U/L (14-36); BILIRUBIN,DIRECT 0.2 mg/dL (0.0-0.4); BILIRUBIN,TOTAL 0.3 mg/dL (0.2-1.3); BLOOD UREA NITROGEN 3 mg/dL (7-20); CALCIUM 8.5 mg/dL (8.4-10.2); CARBON DIOXIDE 20 mmol/L (22-30); CHLORIDE 110 mmol/L (98-107); GLUCOSE 80 mg/dL (75-110); POTASSIUM 3.3 mmol/L (3.6-5.0); TOTAL PROTEIN 4.9 g/dL (6.3-8.2)
[2019-01-06] MEDS: ACETAMINOPHEN 325 MG TABLET PO PRN ×3 (09:22→20:41)
--- NOTE | 2019-01-06 15:08 | PDOC PROGRESS REPORT ---
Subjective Progress Note for:: 01/06/19 Subjective:: feels tired and weak. Reason For Visit: PYELONEPHRITIS AFFECTING ,VOMITING Physical Exam - Physical Exam Vital Signs: Temp Pulse Resp BP Pulse Ox 97.2 F 95 16 124/74 100 01/06/19 12:39 01/06/19 12:39 01/06/19 03:25 01/06/19 12:39 01/06/19 12:39 Intake & Output 01/05/19 01/06/19 01/07/19 06:59 06:59 06:59 Intake Total 1600 Output Total 900 150 Balance 700 -150 Weight 91.2 kg General appearance: PRESENT: no acute distress, cooperative - CVA tenderness negative - Obstetrical Exam Fundal Height: u/u - u/2 Result Laboratory Results: 01/06/19 06:40 01/06/19 06:40 01/05/19 01/05/19 01/05/19 15:15 15:38 15:38 WBC 9.1 RBC 3.21 L Hgb 9.8 L Hct 28.7 L MCV 90 MCH 30.5 MCHC 34.1 RDW 14.2 H Plt Count 224 Seg Neutrophils % 75.9 Lymphocytes % 13.0 Monocytes % 8.7 Eosinophils % 2.0 Basophils % 0.4 Absolute Neutrophils 6.9 Absolute Lymphocytes 1.2 Absolute Monocytes 0.8 Absolute Eosinophils 0.2 Absolute Basophils 0.0 Sodium 137.9 Potassium 3.4 L Chloride 110 H Carbon Dioxide 18 L Anion Gap 10 BUN 5 L Creatinine 0.46 L Est GFR ( Amer) > 60 Est GFR (Non-Af Amer) > 60 Glucose 122 H Lactic Acid Calcium 9.1 Total Bilirubin 0.5 AST 15 Alkaline Phosphatase 104 Total Protein 6.3 Albumin 3.5 Urine Color YELLOW Urine Appearance CLOUDY Urine pH 5.0 Ur Specific [place] 1.027 Urine Protein 100 H Urine Glucose (UA) >=500 H Urine Ketones 80 H Urine Blood SMALL H Urine Nitrite NEGATIVE Ur Leukocyte Esterase LARGE H Urine WBC (Auto) 93 Urine RBC (Auto) 20 01/05/19 01/06/19 01/06/19 15:38 06:40 06:40 WBC 7.0 RBC 2.73 L Hgb 8.3 L Hct 24.3 L MCV 89 MCH 30.5 MCHC 34.3 RDW 14.4 H Plt Count 189 Seg Neutrophils % Lymphocytes % Monocytes % Eosinophils % Basophils % Absolute Neutrophils Absolute Lymphocytes Absolute Monocytes Absolute Eosinophils Absolute Basophils Sodium 137.5 Potassium 3.3 L Chloride 110 H Carbon Dioxide 20 L Anion Gap 8 BUN 3 L Creatinine 0.43 L Est GFR ( Amer) > 60 Est GFR (Non-Af Amer) > 60 Glucose 80 Lactic Acid 1.5 Calcium 8.5 Total Bilirubin 0.3 AST 12 L Alkaline Phosphatase 90 Total Protein 4.9 L Albumin 2.7 L Urine Color Urine Appearance Urine pH Ur Specific [place] Urine Protein Urine Glucose (UA) Urine Ketones Urine Blood Urine Nitrite Ur Leukocyte Esterase Urine WBC (Auto) Urine RBC (Auto) Impressions: Renal Ultrasound 01/05/19 15:22 IMPRESSION: No hydronephrosis. Assessment & Plan - Diagnosis (1) Pyelonephritis affecting Qualifiers: Trimester: third trimester Qualified Code(s): O23.03 - Infections of kidney in , third trimester Is this a current diagnosis for this admission?: Yes (2) Vomiting Qualifiers: Vomiting type: unspecified Vomiting Intractability: unspecified Nausea presence: unspecified Qualified Code(s): R11.10 - Vomiting, unspecified Is this a current diagnosis for this admission?: Yes - Time Time Spent with patient: Less than 15 minutes Anticipated discharge: Home Within: within 48 hours - Inpatient Certification Based on my medical assessment, after consideration of the patient's comorbidities, presenting symptoms, or acuity I expect that the services needed warrant INPATIENT care.: Yes I certify that my determination is in accordance with my understanding of Medicare's requirements for reasonable and necessary INPATIENT services [42 CFR 412.3e].: Yes Medical Necessity: Need for IV Antibiotics - Plan Summary Plan Summary: complete 48 hours of antibiotics and anticipate discharge home afterwards of macrobid for the rest of the
[2019-01-07] MEDS: CEFTRIAXONE 1 GM/D5W RTU 1 GM/50 ML RTUPB IV SCH (06:19)
[2019-01-07 07:05] LABS: ABSOLUTE EOSINOPHILS # (AUTO) 0.3 10^3/uL (0.0-0.6); ABSOLUTE LYMPHOCYTES (AUTO) 1.7 10^3/uL (0.5-4.7); ABSOLUTE MONOCYTES (AUTO) 0.6 10^3/uL (0.1-1.4); ABSOLUTE NEUT (AUTO) 5.6 10^3/uL (1.7-8.2); BASOPHILS % (AUTO) 0.2 % (0-2); HEMATOCRIT 23.9 % (36.0-47.0); HEMOGLOBIN 8.1 g/dL (12.0-15.5); LYMPHOCYTES % (AUTO) 20.9 % (13-45); MEAN CORPUSCULAR HEMOGLOBIN 30.2 pg (27.0-33.4); MEAN CORPUSCULAR HGB CONC 33.9 g/dL (32.0-36.0); MEAN CORPUSCULAR VOLUME 89 fl (80-97); MONOCYTES % (AUTO) 7.5 % (3-13); PLATELET COUNT 189 10^3/uL (150-450); RED BLOOD COUNT 2.69 10^6/uL (3.72-5.28); RED CELL DISTRIBUTION WIDTH 14.5 % (11.5-14.0); SEGMENTED NEUTROPHILS % (AUTO) 67.4 % (42-78); TOTAL CELLS COUNTED % (AUTO) 100 %; WHITE BLOOD COUNT 8.3 10^3/uL (4.0-10.5)
[2019-01-07 07:57] VITALS: BP 114/63
--- NOTE | 2019-01-07 08:38 | PDOC DISCHARGE SUMMARY ---
General - Admit/Disc Date/PCP Admission Date/Primary Care Provider: 01/05/19 18:21 MAXINE LOPEZ MD Discharge Date: 01/07/19 - Discharge Diagnosis (1) Pyelonephritis affecting Is this a current diagnosis for this admission?: Yes Summary: Patient was admitted for pyelonephritis during . Her urine culture has not grown any bacteria. Her white count is normal and she is afebrile. Her renal ultrasound shows no hydronephrosis. She is feeling better and wishes to go home today. We will have her go home and follow-up next week. - Additional Information Resuscitation Status: Full Code Discharge Diet: Regular Discharge Activity: Activity As Tolerated, Balance Activity w/Rest Home Medications: Vit,Calc76/Iron/Folic [Pnv 29-1 Tablet] 1 tab PO DAILY 12/01/18 History of Present Illness Patient complains of: Low back pain History of Present Illness: DARLINE MENSAH is a 18 year old female She is admitted for a history of low back pain and diagnosed with pyelone phritis. During the course of her admission she has not had an elevated white count and her urine has not grown back any bacteria. The renal ultrasound shows no hydronephrosis. She is received 40 hours of antibiotics which should cover her for the pyelonephritis. She is doing better today and is ready to go home. She will follow-up next week. Hospital Course Hospital Course: The patient's hospital course has been uneventful. She has received 48 hours of the IV antibiotics and is now ready for discharge home. Physical Exam - Physical Exam Vital Signs: Temp Pulse Resp BP Pulse Ox 97.4 F 93 16 114/63 100 01/07/19 07:45 01/07/19 07:45 01/07/19 06:23 01/07/19 07:45 01/07/19 07:45 Intake & Output 01/06/19 01/07/19 01/08/19 06:59 06:59 06:59 Intake Total 1650 50 50 Output Total 900 3050 Balance 750 -3000 50 Weight 91.2 kg General appearance: PRESENT: no acute distress Cardiovascular exam: PRESENT: RRR. ABSENT: diastolic murmur, rubs, systolic murmur Pulses: PRESENT: normal dorsalis pedis pul, +2 pedal pulses bilateral Vascular exam: PRESENT: normal capillary refill GI/Abdominal exam: PRESENT: normal bowel sounds, soft. ABSENT: distended, guarding, mass, organolmegaly, rebound, tenderness Result Laboratory Results: 01/07/19 06:36 01/06/19 06:40 01/07/19 06:36 WBC 8.3 RBC 2.69 L Hgb 8.1 L Hct 23.9 L MCV 89 MCH 30.2 MCHC 33.9 RDW 14.5 H Plt Count 189 Seg Neutrophils % 67.4 Lymphocytes % 20.9 Monocytes % 7.5 Eosinophils % 4.0 Basophils % 0.2 Absolute Neutrophils 5.6 Absolute Lymphocytes 1.7 Absolute Monocytes 0.6 Absolute Eosinophils 0.3 Absolute Basophils 0.0 Impressions: Renal Ultrasound 01/05/19 15:22 IMPRESSION: No hydronephrosis. Her urine culture did not grow back bacteria. Plan Discharge Plan: Patient will be sent home to complete a course of Macrobid. She will follow-up next week as per her next visit. Time Spent: Less than 30 Minutes Acute Heart Failure - Is this a Heart Failure Patient?: No
== END 2019-01-07 11:41 | disposition home or self-care (01) | DRG 833 ==
LOC: ER 15:04 → EH 18:21 → 2N 19:39
PROVIDERS: ADMIT Obstetrics & Gynecology Gynecology; ATTEND Obstetrics & Gynecology Gynecology
DX: O23.03 Infections of kidney in pregnancy, third trimester (principal); Z3A.30 30 weeks gestation of pregnancy
CPT/HCPCS: 36415; 76770; 80053; 81001; 83605; 85025; 85027; 87040; 87086; 96361; 96374; 96375; 99284; J0696; J2765; J7030; J7121

== ENCOUNTER 2019-01-22 20:58 | Outpatient (CLI) | payer MEDICAID ==
[2019-01-22 21:27] LABS: APPEARANCE,URINE CLEAR; BILIRUBIN,URINE NEGATIVE (NEGATIVE); COLOR,URINE YELLOW; GLUCOSE, URINE 50 mg/dL (NEGATIVE); KETONES,URINE TRACE mg/dL (NEGATIVE); LEUKOCYTE ESTERASE,URINE SMALL (NEGATIVE); NITRITE,URINE NEGATIVE (NEGATIVE); PROTEIN,URINE 30 mg/dL (NEGATIVE); URINE SPECIFIC GRAVITY 1.021
[2019-01-22 21:49] LABS: URINE AMPHETAMINES SCREEN NEGATIVE; URINE BENZODIAZEPINES SCREEN NEGATIVE; URINE COCAINE SCREEN NEGATIVE; URINE MARIJUANA (THC) SCREEN NEGATIVE; URINE METHADONE SCREEN NEGATIVE; URINE PHENCYCLIDINE SCREEN NEGATIVE
[2019-01-22 21:51] LABS: URINE BARBITURATES SCREEN UNCONFIRMED POSITIVE
== END 2019-01-22 22:31 | disposition home or self-care (01) ==
LOC: LC 20:58
PROVIDERS: ATTEND Obstetrics & Gynecology
PROC: 4A1HXCZ Monitoring of Products of Conception, Cardiac Rate, External Approach (ICD-10-PCS; principal; 2019-01-22)
DX: O47.03 False labor before 37 completed weeks of gestation, third trimester (principal); Z3A.32 32 weeks gestation of pregnancy
CPT/HCPCS: 59025; 80307; 81001; 87070; 87077; 87205

== ENCOUNTER 2019-02-09 19:45 | Emergency (ER) | payer MEDICAID ==
[2019-02-09] MEDS ORDERED: NORMAL SALINE 1000 ML 1,000 ML IV ONE ×2 (20:19→22:18)
[2019-02-09] MEDS ORDERED: ACETAMINOPHEN 325 MG TABLET PO ONE (20:19)
--- NOTE | 2019-02-09 20:20 | ER Document Report ---
ED Medical Screen (RME) - General Chief Complaint: Sore Throat Stated Complaint: FLU LIKE SYMPTOMS Time Seen by Provider: 02/09/19 20:17 Primary Care Provider: MAXINE LOPEZ MD [Primary Care Provider] - Follow up as needed TRAVEL OUTSIDE OF THE [place] IN LAST 30 DAYS: No - HPI Notes: 02/09/19 20:17 Patient is a 18-year-old female G1, P0 approximately 35 weeks who pres ents complaining of feeling feverish, sore throat, nasal congestion/discharge that began yesterday. Patient states that she has been taking Tylenol with last dose around 4 PM today. She is able to eat and drink, but does have a decreased p.o. intake. She is not urinating as much per patient. She has not had any vaginal bleeding, odor, or discharge. Patient states that she has noticed some lower pelvic cramping and tension in her low back. Patient states that she is on clindamycin currently for MRSA infection to her skin that has been healing and not worsening per patient. She has noticed a very slight burning with urination. Denies DUMONT, neck pain, CP, SOB, or rash. I have treated and performed a rapid initial assessment of this patient. A comprehensive ED assessment and evaluation of the patient, analysis of test results and completion of medical decision making process will be conducted by additional ED providers. Spoke with charge nurse. We will eval here first and discharge to L&D pending work up or have them eval here in the ED. PHYSICAL EXAMINATION: GENERAL: Well-appearing, well-nourished and in no acute distress. A&Ox4. Answers questions appropriately. Oropharynx: mild erythema without significant tonsilar hypertrophy or airway compromise. Nose: clear discharge noted. LUNGS: Breath sounds clear to auscultation bilaterally and equal. No wheezes rales or rhonchi. HEART: Regular rate and rhythm without murmurs, rubs, gallops. - Related Data Allergies/Adverse Reactions: No Known Allergies Allergy (Verified 01/22/19 21:53) Past Medical History Renal/ Medical History: Denies: Hx Peritoneal Dialysis - Immunizations Immunizations up to date: Yes Physical Exam - Vital signs Vitals: Temp Pulse Resp BP Pulse Ox 100.1 F 140 H 17 140/64 H 99 02/09/19 20:07 02/09/19 20:07 02/09/19 20:07 02/09/19 20:07 02/09/19 20:07 Course - Vital Signs Vital signs: Temp Pulse Resp BP Pulse Ox 100.1 F 140 H 17 140/64 H 99 02/09/19 20:07 02/09/19 20:07 02/09/19 20:07 02/09/19 20:07 02/09/19 20:07 Doctor's Discharge - Discharge Referrals: MAXINE LOPEZ MD [Primary Care Provider] - Follow up as needed
[2019-02-09 20:49] LABS: ABSOLUTE EOSINOPHILS # (AUTO) 0.2 10^3/uL (0.0-0.6); ABSOLUTE LYMPHOCYTES (AUTO) 0.6 10^3/uL (0.5-4.7); ABSOLUTE MONOCYTES (AUTO) 0.8 10^3/uL (0.1-1.4); BASOPHILS % (AUTO) 0.4 % (0-2); EOSINOPHILS % (AUTO) 1.6 % (0-6); HEMATOCRIT 25.9 % (36.0-47.0); HEMOGLOBIN 8.6 g/dL (12.0-15.5); LYMPHOCYTES % (AUTO) 5.3 % (13-45); MEAN CORPUSCULAR HGB CONC 33.3 g/dL (32.0-36.0); MEAN CORPUSCULAR VOLUME 84 fl (80-97); MONOCYTES % (AUTO) 7.1 % (3-13); PLATELET COUNT 214 10^3/uL (150-450); RED BLOOD COUNT 3.08 10^6/uL (3.72-5.28); RED CELL DISTRIBUTION WIDTH 15.2 % (11.5-14.0); SEGMENTED NEUTROPHILS % (AUTO) 85.6 % (42-78); TOTAL CELLS COUNTED % (AUTO) 100 %; WHITE BLOOD COUNT 11.6 10^3/uL (4.0-10.5)
[2019-02-09 21:09] LABS: ALBUMIN 3.4 g/dL (3.5-5.0); ALKALINE PHOSPHATASE 165 U/L (38-126); ANION GAP 8 (5-19); ASPARTATE AMINO TRANSFERASE 23 U/L (14-36); BILIRUBIN,DIRECT 0.1 mg/dL (0.0-0.4); BLOOD UREA NITROGEN 2 mg/dL (7-20); CARBON DIOXIDE 20 mmol/L (22-30); CHLORIDE 107 mmol/L (98-107); GLUCOSE 93 mg/dL (75-110); POTASSIUM 3.2 mmol/L (3.6-5.0); TOTAL PROTEIN 6.2 g/dL (6.3-8.2)
[2019-02-09 21:26] LABS: APPEARANCE,URINE CLEAR; BILIRUBIN,URINE NEGATIVE (NEGATIVE); COLOR,URINE YELLOW; GLUCOSE, URINE 50 mg/dL (NEGATIVE); KETONES,URINE 300 mg/dL (NEGATIVE); LEUKOCYTE ESTERASE,URINE TRACE (NEGATIVE); NITRITE,URINE NEGATIVE (NEGATIVE); PROTEIN,URINE 30 mg/dL (NEGATIVE); UROBILINOGEN,URINE NEGATIVE mg/dL (<2.0)
[2019-02-09 21:30] LABS: URINE SPECIFIC GRAVITY 1.015
[2019-02-09 23:08] VITALS: BP 122/71
[2019-02-09] MEDS ORDERED: POTASSIUM CHLORIDE 10 MEQ CAPSULE.ER PO ONE (23:14)
[2019-02-09] MEDS ORDERED: CEFTRIAXONE 1 GM/D5W RTU 1 GM/50 ML RTUPB IV ONE (23:20)
--- NOTE | 2019-02-09 23:29 | ER Document Report ---
ED General - General Chief Complaint: Sore Throat Stated Complaint: FLU LIKE SYMPTOMS Time Seen by Provider: 02/09/19 20:17 Primary Care Provider: MAXINE LOPEZ MD [Primary Care Provider] - Follow up as needed Notes: RME NOTE: Patient is a 18-year-old female G1, P0 approximately 35 weeks who presents complaining of feeling feverish, sore throat, nasal congestion/discharge that began yesterday. Patient states that she has been taking Tylenol with last dose around 4 PM today. She is able to eat and drink, but does have a decreased p.o. intake. She is not urinating as much per patient. She has not had any vaginal bleeding, odor, or discharge. Patient states that she has noticed some lower pelvic cramping and tension in her low back. Patient states that she is on clindamycin currently for MRSA infection to her skin that has been healing and not worsening per patient. She has noticed a very slight burning with urination. Denies DUMONT, neck pain, CP, SOB, or rash. My HPI: Initial evaluation and laboratory orders placed by [facility]. Patient voices initially upon arrival to the emergency department she was complaining of generalized URI symptoms as well as a sore throat. Patient denied any abdominal pain or cramping to me while I evaluate her. Patient states since being in the emergency department she now has generalized lower abdominal cramping and pain in her lower back. Patient is denying any vaginal bleeding or discharge. TRAVEL OUTSIDE OF THE [place] IN LAST 30 DAYS: No - Related Data Allergies/Adverse Reactions: No Known Allergies Allergy (Verified 01/22/19 21:53) Past Medical History - General Information source: Patient - Social History Smoking Status: Never Smoker Chew tobacco use (# tins/day): No Frequency of alcohol use: None Drug Abuse: None Family History: Reviewed & Not Pertinent Patient has suicidal ideation: No Patient has homicidal ideation: No Renal/ Medical History: Denies: Hx Peritoneal Dialysis - Immunizations Immunizations up to date: Yes Review of Systems - Review of Systems Constitutional: Fever EENT: See HPI Cardiovascular: No symptoms reported Respiratory: See HPI Gastrointestinal: No symptoms reported Genitourinary: See HPI Female Genitourinary: See HPI Musculoskeletal: See HPI Skin: See HPI Hematologic/Lymphatic: No symptoms reported Neurological/Psychological: No symptoms reported Physical Exam - Vital signs Vitals: Temp Pulse Resp BP Pulse Ox 100.1 F 140 H 17 140/64 H 99 02/09/19 20:07 02/09/19 20:07 02/09/19 20:07 02/09/19 20:07 02/09/19 20:07 - Notes Notes: GENERAL: Alert, interacts well. HEAD: Normocephalic, atraumatic. EYES: Pupils equal, round, and reactive to light. Extraocular movements intact. ENT: Oral mucosa moist, tongue midline. Nares patent, TM's intact, nonerythematous, nonbulging bilaterally. Pharynx minorly erythematous no palatal petechiae or exudate noted. NECK: Full range of motion. Supple. Trachea midline. No lymphadenopathy appreciated LUNGS: Clear to auscultation bilaterally, no wheezes, rales, or rhonchi. No respiratory distress. HEART: Tachycardic rate and rhythm. No murmur ABDOMEN: Obviously gravid, soft, non-tender. Non-distended. Bowel sounds present in all 4 quadrants. EXTREMITIES: Moves all 4 extremities spontaneously. No edema, normal radial and dorsalis pedis pulses bilaterally. No cyanosis. BACK: no cervical, thoracic, lumbar midline tenderness. No saddle anesthesia, normal distal neurovascular exam. NEUROLOGICAL: Alert and oriented x3. Normal speech. cranial nerves II through XII grossly intact. PSYCH: Normal affect, normal mood. SKIN: Warm, dry, normal turgor. Course - Re-evaluation Re-evalutation: 02/09/19 23:24 Patient initially presents to the emergency department tachycardic and afebrile. She is complaining of generalized URI symptoms as well as some dysuria. As patient's time in the emergency department progresses she is now complaining of generalized cramping in her lower abdomen. States she does feel generalized pressure. Despite 2 L of fluid in the emergency room she continues to be tachycardic. She does appear uncomfortable upon my repeat assessment. I have discussed with her and charge nurse my suggestion that patient be transferred to labor and delivery. Patient's rapid strep test was negative, urine shows initial signs of infection, sent for culture. IV antibiotics ordered although not administered as patient was transferred to labor and delivery. - Vital Signs Vital signs: Temp Pulse Resp BP Pulse Ox 98.9 F 140 H 18 122/71 99 02/09/19 22:01 02/09/19 20:07 02/09/19 23:01 02/09/19 23:01 02/09/19 23:01 - Laboratory Result Diagrams: 02/09/19 20:33 02/09/19 20:33 Laboratory results interpreted by me: 02/09/19 02/09/19 02/09/19 20:33 20:33 21:00 WBC 11.6 H RBC 3.08 L Hgb 8.6 L Hct 25.9 L RDW 15.2 H Lymph % (Auto) 5.3 L Absolute Neuts (auto) 10.0 H Seg Neutrophils % 85.6 H Sodium 134.9 L Potassium 3.2 L Carbon Dioxide 20 L BUN 2 L Creatinine 0.49 L Alkaline Phosphatase 165 H Total Protein 6.2 L Albumin 3.4 L Urine Protein 30 H Urine Glucose (UA) 50 H Urine Ketones 300 H Ur Leukocyte Esterase TRACE H Discharge - Discharge Clinical Impression: Urinary tract infection Qualifiers: Urinary tract infection type: acute cystitis Hematuria presence: without hem aturia Qualified Code(s): N30.00 - Acute cystitis without hematuria Upper respiratory infection Qualifiers: URI type: unspecified viral URI Qualified Code(s): J06.9 - Acute upper respiratory infection, unspecified Pharyngitis Qualifiers: Pharyngitis/tonsillitis etiology: unspecified etiology Qualified Code(s): J02.9 - Acute pharyngitis, unspecified Condition: Stable Disposition: LABOR CHECK Instructions: Sore Throat ([facility]), Urinary Tract Infection ([facility]), Cephalexin ([facility]) Additional Instructions: As we discussed you have been seen and treated in the emergency department for an upper respiratory infection. Your rapid strep test was negative for bacteria. Your symptoms appear to be viral. Based on the fact you are now having lower abdominal cramping we will send you to labor and delivery for continued evaluation. Based on the fact that you have discomfort urinating and your urinalysis will treat with antibiotics. Prescriptions: Cephalexin Monohydrate [Keflex 500 mg Capsule] 500 mg PO BID 7 Days #14 capsule Referrals: MAXINE LOPEZ MD [Primary Care Provider] - Follow up as needed
== END 2019-02-09 23:36 | disposition admitted as inpatient to this hospital (09) ==
LOC: ER 19:45
DX: O23.13 Infections of bladder in pregnancy, third trimester (principal); O26.893 Other specified pregnancy related conditions, third trimester; J06.9 Acute upper respiratory infection, unspecified; J02.9 Acute pharyngitis, unspecified; R50.9 Fever, unspecified; R09.81 Nasal congestion; R09.89 Other specified symptoms and signs involving the circulatory and respiratory systems; R63.0 Anorexia; R10.2 Pelvic and perineal pain; M54.5 Low back pain; Z3A.35 35 weeks gestation of pregnancy
CPT/HCPCS: 36415; 87040; 87070; 87086; 87880; 83605; 85025; 80053; 81001; J3490; J7030; 96360; 96361; 99283

== ENCOUNTER 2019-02-09 23:50 | Outpatient (CLI) | payer MEDICAID ==
[2019-02-10 01:27] LABS: APPEARANCE,URINE CLEAR; BILIRUBIN,URINE NEGATIVE (NEGATIVE); COLOR,URINE STRAW; GLUCOSE, URINE NEGATIVE (NEGATIVE); KETONES,URINE 300 mg/dL (NEGATIVE); LEUKOCYTE ESTERASE,URINE NEGATIVE (NEGATIVE); NITRITE,URINE NEGATIVE (NEGATIVE); PROTEIN,URINE NEGATIVE (NEGATIVE); UROBILINOGEN,URINE NEGATIVE mg/dL (<2.0)
[2019-02-10 01:37] LABS: URINE SPECIFIC GRAVITY 1.006
[2019-02-10 01:46] LABS: URINE AMPHETAMINES SCREEN NEGATIVE; URINE BARBITURATES SCREEN NEGATIVE; URINE BENZODIAZEPINES SCREEN NEGATIVE; URINE COCAINE SCREEN NEGATIVE; URINE MARIJUANA (THC) SCREEN NEGATIVE; URINE METHADONE SCREEN NEGATIVE; URINE PHENCYCLIDINE SCREEN NEGATIVE
[2019-02-10] MEDS ORDERED: NALBUPHINE HCL INJ 10 MG/1 ML AMPULE ONE (03:11)
[2019-02-10] MEDS ORDERED: CEFTRIAXONE INJ 1000 MG VIAL IV ONE (03:28)
[2019-02-10] MEDS ORDERED: DEXTROSE 5%-LACTATED RINGERS 1,000 ML IV ONE (03:29)
[2019-02-10] MEDS ORDERED: NALBUPHINE HCL INJ 10 MG/1 ML AMPULE INJ ONE (03:29)
[2019-02-10] MEDS ORDERED: PHENAZOPYRIDINE HCL 200 MG TABLET PO ONE (03:30)
[2019-02-10] MEDS ORDERED: CEFTRIAXONE INJ 1000 MG VIAL ONE (03:32)
[2019-02-10] MEDS ORDERED: PHENAZOPYRIDINE HCL 200 MG TABLET ONE (03:34)
[2019-02-10] MEDS ORDERED: CEFTRIAXONE 2 GM/D5W RTU 2 GM/50 ML RTUPB IV ONE (04:00)
[2019-02-10 16:49] LABS: ABSOLUTE EOSINOPHILS # (AUTO) 0.2 10^3/uL (0.0-0.6); ABSOLUTE LYMPHOCYTES (AUTO) 1.3 10^3/uL (0.5-4.7); ABSOLUTE MONOCYTES (AUTO) 0.7 10^3/uL (0.1-1.4); ABSOLUTE NEUT (AUTO) 5.6 10^3/uL (1.7-8.2); BASOPHILS % (AUTO) 0.5 % (0-2); EOSINOPHILS % (AUTO) 2.1 % (0-6); HEMATOCRIT 24.9 % (36.0-47.0); HEMOGLOBIN 8.4 g/dL (12.0-15.5); LYMPHOCYTES % (AUTO) 17.3 % (13-45); MEAN CORPUSCULAR HEMOGLOBIN 28.8 pg (27.0-33.4); MEAN CORPUSCULAR HGB CONC 33.8 g/dL (32.0-36.0); MEAN CORPUSCULAR VOLUME 86 fl (80-97); MONOCYTES % (AUTO) 8.9 % (3-13); PLATELET COUNT 210 10^3/uL (150-450); RED BLOOD COUNT 2.91 10^6/uL (3.72-5.28); RED CELL DISTRIBUTION WIDTH 15.5 % (11.5-14.0); SEGMENTED NEUTROPHILS % (AUTO) 71.2 % (42-78); TOTAL CELLS COUNTED % (AUTO) 100 %; WHITE BLOOD COUNT 7.8 10^3/uL (4.0-10.5)
== END 2019-02-10 05:19 | disposition home or self-care (01) ==
LOC: LC 23:50
PROVIDERS: ATTEND Obstetrics & Gynecology
PROC: 4A1HXCZ Monitoring of Products of Conception, Cardiac Rate, External Approach (ICD-10-PCS; principal; 2019-02-09)
DX: Z34.93 Encounter for supervision of normal pregnancy, unspecified, third trimester (principal)
CPT/HCPCS: 59025; 36415; 81001; 80307; J2300; J3490; J0696

== ENCOUNTER 2019-02-10 16:18 | Outpatient (CLI) | payer MEDICAID ==
[2019-02-10 17:47] LABS: APPEARANCE,URINE CLEAR; BILIRUBIN,URINE NEGATIVE (NEGATIVE); GLUCOSE, URINE NEGATIVE (NEGATIVE); KETONES,URINE TRACE mg/dL (NEGATIVE); LEUKOCYTE ESTERASE,URINE TRACE (NEGATIVE); NITRITE,URINE POSITIVE (NEGATIVE); PROTEIN,URINE NEGATIVE (NEGATIVE); URINE SPECIFIC GRAVITY 1.011
[2019-02-10 17:51] LABS: COLOR,URINE DARK YELLOW
[2019-02-10 18:15] LABS: URINE AMPHETAMINES SCREEN NEGATIVE; URINE BARBITURATES SCREEN NEGATIVE; URINE BENZODIAZEPINES SCREEN NEGATIVE; URINE COCAINE SCREEN NEGATIVE; URINE MARIJUANA (THC) SCREEN NEGATIVE; URINE METHADONE SCREEN NEGATIVE; URINE PHENCYCLIDINE SCREEN NEGATIVE
== END 2019-02-10 18:41 | disposition home or self-care (01) ==
LOC: LC 16:18
PROVIDERS: ATTEND Obstetrics & Gynecology
PROC: 4A1HXCZ Monitoring of Products of Conception, Cardiac Rate, External Approach (ICD-10-PCS; principal; 2019-02-10)
DX: O47.03 False labor before 37 completed weeks of gestation, third trimester (principal); Z3A.35 35 weeks gestation of pregnancy
CPT/HCPCS: 80307; 81001

== ENCOUNTER 2019-02-27 11:04 | Outpatient (CLI) | payer MEDICAID ==
--- NOTE | 2019-02-27 12:00 | Non Stress Test Report ---
Non Stress Test Datetime Report Generated by CPN: 02/27/2019 12:00 DEMOGRAPHIC EGA NST: 38.1 EGA NST: 35.5 EGA NST: 35.5 INDICATION Indication for Study: Decreased Movement Indication for Study: Pyelonephritis Indication for Study: Pyelonephritis; Ordered by Provider Indication for Study (NST) Other: Decreased movement VITAL SIGNS Temperature - NST: 98.8 Temperature - NST: 98.0 Pulse - NST: 117 Pulse - NST: 112 RESP - NST: 14 RESP - NST: 14 NBPSYS NST: 132 NBPSYS NST: 134 NBPDIA NST: 77 NBPDIA NST: 81 URINE RESULTS Urine Protein, NST: Negative Urine Ketones - NST: Positive Urine Glucose - NST: Negative Urine Blood - NST: Negative MONITORING Monitor Explained: Monitor Explained; Test Explained; Patient Verbalized Understanding Monitor Explained: Monitor Explained; Test Explained; Patient Verbalized Understanding; Other Monitor Explained: Monitor Explained; Test Explained; Patient Verbalized Understanding Time on Monitor: 02/27/2019 11:16 Time on Monitor: 02/10/2019 16:47 Time on Monitor: 02/10/2019 00:35 Time off Monitor: 02/27/2019 11:45 NST Duration: 29 NST INTERVENTIONS NST Interventions: PO Hydration NST Interventions: Reposition Patient NST Interventions: PO Hydration; IV Fluids Physician Notified NST: Sarah Tang CNM Physician Notified NST: Dr. Grider BABY A: [id number] BABY A Movement : Present Movement : Present Movement : Present Contraction Frequency : N/A Contraction Frequency : x1 Contraction Frequency : irreg FHR Baseline : 145 FHR Baseline : 150 FHR Baseline : 140 Accelerations : 15X15 Accelerations : 15X15 Accelerations : 15X15 Decelerations : None Decelerations : None Decelerations : None Variability : Moderate 6-25bpm Variability : Moderate 6-25bpm Variability : Moderate 6-25bpm NST Review: Meets Criteria for Reactive NST NST Review: Meets Criteria for Reactive NST NST Review: Meets Criteria for Reactive NST NST Review and Verified By : PingField, RN NST Results: Reactive NST Results: Reactive NST Results: Reactive NST REPORT Report Trigger: Send Report
== END 2019-02-27 11:51 | disposition home or self-care (01) ==
LOC: LC 11:04
PROVIDERS: ATTEND Obstetrics & Gynecology
PROC: 4A1HXCZ Monitoring of Products of Conception, Cardiac Rate, External Approach (ICD-10-PCS; principal; 2019-02-27)
DX: O36.8130 Decreased fetal movements, third trimester, not applicable or unspecified (principal); Z3A.38 38 weeks gestation of pregnancy
CPT/HCPCS: 59025

== ENCOUNTER 2019-03-13 17:19 | Outpatient (CLI) | payer MEDICAID ==
[2019-03-13] MEDS ORDERED: CEFTRIAXONE INJ 1000 MG VIAL ONE (18:13)
[2019-03-13] MEDS ORDERED: ACETAMINOPHEN 325 MG TABLET ONE (18:14)
[2019-03-13] MEDS ORDERED: CEFTRIAXONE INJ 500 MG VIAL IV ONE (18:21)
[2019-03-13] MEDS ORDERED: ACETAMINOPHEN 325 MG TABLET PO ONE (18:25)
[2019-03-13 18:42] LABS: APPEARANCE,URINE CLEAR; BILIRUBIN,URINE NEGATIVE (NEGATIVE); COLOR,URINE YELLOW; GLUCOSE, URINE NEGATIVE (NEGATIVE); KETONES,URINE 80 mg/dL (NEGATIVE); LEUKOCYTE ESTERASE,URINE SMALL (NEGATIVE); NITRITE,URINE NEGATIVE (NEGATIVE); PROTEIN,URINE NEGATIVE (NEGATIVE); URINE SPECIFIC GRAVITY 1.008; UROBILINOGEN,URINE NEGATIVE mg/dL (<2.0)
[2019-03-13] MEDS ORDERED: CEFTRIAXONE INJ 1000 MG VIAL IV ONE (18:45)
[2019-03-13 18:51] LABS: URINE AMPHETAMINES SCREEN NEGATIVE; URINE BARBITURATES SCREEN NEGATIVE; URINE BENZODIAZEPINES SCREEN NEGATIVE; URINE COCAINE SCREEN NEGATIVE; URINE MARIJUANA (THC) SCREEN NEGATIVE; URINE METHADONE SCREEN NEGATIVE; URINE PHENCYCLIDINE SCREEN NEGATIVE
[2019-03-13 19:17] LABS: ABSOLUTE EOSINOPHILS # (AUTO) 0.1 10^3/uL (0.0-0.6); ABSOLUTE LYMPHOCYTES (AUTO) 1.3 10^3/uL (0.5-4.7); ABSOLUTE MONOCYTES (AUTO) 1.2 10^3/uL (0.1-1.4); ABSOLUTE NEUT (AUTO) 14.1 10^3/uL (1.7-8.2); BASOPHILS % (AUTO) 0.2 % (0-2); EOSINOPHILS % (AUTO) 0.7 % (0-6); HEMOGLOBIN 9.4 g/dL (12.0-15.5); LYMPHOCYTES % (AUTO) 7.7 % (13-45); MEAN CORPUSCULAR HEMOGLOBIN 26.2 pg (27.0-33.4); MEAN CORPUSCULAR HGB CONC 32.3 g/dL (32.0-36.0); MEAN CORPUSCULAR VOLUME 81 fl (80-97); MONOCYTES % (AUTO) 7.4 % (3-13); PLATELET COUNT 263 10^3/uL (150-450); RED BLOOD COUNT 3.58 10^6/uL (3.72-5.28); TOTAL CELLS COUNTED % (AUTO) 100 %; WHITE BLOOD COUNT 16.8 10^3/uL (4.0-10.5)
--- NOTE | 2019-03-13 21:16 | Non Stress Test Report ---
Non Stress Test Datetime Report Generated by CPN: 03/13/2019 21:15 DEMOGRAPHIC EGA NST: 40.1 INDICATION Indication for Study: Ordered by Provider MONITORING Monitor Explained: Monitor Explained; Test Explained; Patient Verbalized Understanding Time on Monitor: 03/13/2019 17:51 Time off Monitor: 03/13/2019 20:58 NST Duration: 187 NST INTERVENTIONS NST Interventions: PO Hydration Physician Notified NST: Dr. Forrest BABY A: [id number] BABY A Movement : Present Contraction Frequency : 2-5 FHR Baseline : 150 Accelerations : 15X15 Decelerations : None Variability : Moderate 6-25bpm NST Review: Meets Criteria for Reactive NST NST Review and Verified By : nuvia OCAMPO Results: Reactive NST REPORT Report Trigger: Send Report
== END 2019-03-13 21:12 | disposition home or self-care (01) ==
LOC: LC 17:19
PROVIDERS: ATTEND Obstetrics & Gynecology Gynecology
PROC: 4A1HXCZ Monitoring of Products of Conception, Cardiac Rate, External Approach (ICD-10-PCS; principal; 2019-03-13)
DX: O23.43 Unspecified infection of urinary tract in pregnancy, third trimester (principal); Z3A.40 40 weeks gestation of pregnancy
CPT/HCPCS: 86900; 86901; 36415; 86870; 86850; 85025; 86592; 81001; 80307; 59025; J3490; J0696; 87086; 87088; 94760

== ENCOUNTER 2019-03-14 19:52 | Outpatient (CLI) | payer MEDICAID ==
[2019-03-14 20:24] LABS: APPEARANCE,URINE SLIGHTLY-CLOUDY; BILIRUBIN,URINE NEGATIVE (NEGATIVE); COLOR,URINE YELLOW; GLUCOSE, URINE NEGATIVE (NEGATIVE); KETONES,URINE 20 mg/dL (NEGATIVE); LEUKOCYTE ESTERASE,URINE MODERATE (NEGATIVE); NITRITE,URINE NEGATIVE (NEGATIVE); PROTEIN,URINE 30 mg/dL (NEGATIVE)
[2019-03-14 20:44] LABS: URINE AMPHETAMINES SCREEN NEGATIVE; URINE BARBITURATES SCREEN NEGATIVE; URINE BENZODIAZEPINES SCREEN NEGATIVE; URINE COCAINE SCREEN NEGATIVE; URINE MARIJUANA (THC) SCREEN NEGATIVE; URINE METHADONE SCREEN NEGATIVE; URINE PHENCYCLIDINE SCREEN NEGATIVE
== END 2019-03-14 21:27 | disposition home or self-care (01) ==
LOC: LC 19:52
PROVIDERS: ATTEND Obstetrics & Gynecology
PROC: 4A1HXCZ Monitoring of Products of Conception, Cardiac Rate, External Approach (ICD-10-PCS; principal; 2019-03-14)
DX: O23.43 Unspecified infection of urinary tract in pregnancy, third trimester (principal); O47.1 False labor at or after 37 completed weeks of gestation; O48.0 Post-term pregnancy; Z3A.40 40 weeks gestation of pregnancy
CPT/HCPCS: 80307; 81005

== ENCOUNTER 2019-03-15 22:04 | Inpatient (IN) | payer MEDICAID ==
--- NOTE | 2019-03-15 22:27 | Non Stress Test Report ---
Non Stress Test Datetime Report Generated by CPN: 03/15/2019 22:27 DEMOGRAPHIC EGA NST: 40.2 INDICATION Indication for Study: Ordered by Provider URINE RESULTS Urine Protein, NST: Positive Urine Ketones - NST: Positive Urine Glucose - NST: Negative Urine Blood - NST: Positive MONITORING Monitor Explained: Monitor Explained; Test Explained; Patient Verbalized Understanding Time on Monitor: 03/14/2019 20:10 Time off Monitor: 03/14/2019 21:13 NST Duration: 63 NST INTERVENTIONS NST Interventions: PO Hydration Physician Notified NST: Romero BABY A: [id number] BABY A Movement : Present Contraction Frequency : 2-4 FHR Baseline : 150 Accelerations : 15X15 Decelerations : None Variability : Moderate 6-25bpm NST Review: Meets Criteria for Reactive NST NST Review and Verified By : nuvia OCAMPO Results: Reactive NST REPORT Report Trigger: Send Report
[2019-03-15] MEDS ORDERED: RINGERS SOLUTION,LACTATED 1,000 ML IV PRN (22:29)
[2019-03-15] MEDS ORDERED: PENICILLIN G-K 5 MILLION UNIT VIAL ONE (22:36)
[2019-03-15] MEDS ORDERED: MISOPROSTOL 0.2 MG TABLET ONE (22:38)
[2019-03-15] MEDS ORDERED: OXYTOCIN 10 UNIT/ML VIAL ONE ×2 (22:38→23:35)
[2019-03-15] MEDS ORDERED: LIDOCAINE 1% INJ-PF (10 MG/ML) 30 ML SDV ONE (22:38)
[2019-03-15] MEDS ORDERED: OXYTOCIN/NORMAL SALINE 20 UNIT/1,000 ML RTUINJ ONE ×2 (22:39→23:36)
[2019-03-15] MEDS ORDERED: ACETAMINOPHEN 325 MG TABLET ONE (22:43)
[2019-03-15] MEDS ORDERED: AMMONIA INHALANTS 10 AMPUL/BOX IH ONE (22:55)
[2019-03-15] MEDS ORDERED: MAGNESIUM SULFATE 20 GM/500 ML RTUINJ IV ONE (22:56)
[2019-03-15] MEDS ORDERED: MAGNESIUM SULFATE 4 GM/100 ML RTUPB IV ONE (22:56)
[2019-03-15] MEDS ORDERED: ACETAMINOPHEN 325 MG TABLET PO ONE (23:00)
[2019-03-15] MEDS ORDERED: CEFAZOLIN SODIUM 2 GM in DEXTROSE 5%-WATER 100 ML IV ONE (23:00)
[2019-03-15] MEDS ORDERED: PENICILLIN G POTASSIUM 5,000,000 UNIT in DEXTROSE 5%-WATER 100 ML IV ONE (23:00)
[2019-03-15] MEDS ORDERED: RINGERS SOLUTION,LACTATED 1,000 ML IV ONE (23:00)
[2019-03-15 23:07] LABS: ABSOLUTE EOSINOPHILS # (AUTO) 0.2 10^3/uL (0.0-0.6); ABSOLUTE LYMPHOCYTES (AUTO) 1.4 10^3/uL (0.5-4.7); ABSOLUTE MONOCYTES (AUTO) 0.9 10^3/uL (0.1-1.4); ABSOLUTE NEUT (AUTO) 10.5 10^3/uL (1.7-8.2); BASOPHILS % (AUTO) 0.1 % (0-2); EOSINOPHILS % (AUTO) 1.2 % (0-6); HEMATOCRIT 29.1 % (36.0-47.0); HEMOGLOBIN 9.3 g/dL (12.0-15.5); LYMPHOCYTES % (AUTO) 10.6 % (13-45); MEAN CORPUSCULAR HEMOGLOBIN 25.8 pg (27.0-33.4); MEAN CORPUSCULAR VOLUME 81 fl (80-97); MONOCYTES % (AUTO) 7.2 % (3-13); PLATELET COUNT 279 10^3/uL (150-450); RED BLOOD COUNT 3.61 10^6/uL (3.72-5.28); RED CELL DISTRIBUTION WIDTH 18.6 % (11.5-14.0); SEGMENTED NEUTROPHILS % (AUTO) 80.9 % (42-78); TOTAL CELLS COUNTED % (AUTO) 100 %; WHITE BLOOD COUNT 12.9 10^3/uL (4.0-10.5)
[2019-03-15 23:08] LABS: APPEARANCE,URINE CLOUDY; BILIRUBIN,URINE NEGATIVE (NEGATIVE); COLOR,URINE YELLOW; GLUCOSE, URINE NEGATIVE (NEGATIVE); KETONES,URINE NEGATIVE (NEGATIVE); LEUKOCYTE ESTERASE,URINE LARGE (NEGATIVE); NITRITE,URINE NEGATIVE (NEGATIVE); PROTEIN,URINE 30 mg/dL (NEGATIVE); URINE SPECIFIC GRAVITY 1.005; UROBILINOGEN,URINE NEGATIVE mg/dL (<2.0)
[2019-03-15] MEDS ORDERED: AMPICILLIN SOD INJ 2 GM VIAL IV PRN (23:18)
[2019-03-15 23:27] LABS: URINE AMPHETAMINES SCREEN NEGATIVE; URINE BARBITURATES SCREEN NEGATIVE; URINE BENZODIAZEPINES SCREEN NEGATIVE; URINE COCAINE SCREEN NEGATIVE; URINE MARIJUANA (THC) SCREEN NEGATIVE; URINE METHADONE SCREEN NEGATIVE; URINE PHENCYCLIDINE SCREEN NEGATIVE
[2019-03-15 23:34] LABS: ALBUMIN 3.1 g/dL (3.5-5.0); ALKALINE PHOSPHATASE 237 U/L (38-126); ANION GAP 10 (5-19); ASPARTATE AMINO TRANSFERASE 15 U/L (14-36); BILIRUBIN,DIRECT 0.1 mg/dL (0.0-0.4); BILIRUBIN,TOTAL 0.8 mg/dL (0.2-1.3); BLOOD UREA NITROGEN 3 mg/dL (7-20); CARBON DIOXIDE 19 mmol/L (22-30); CHLORIDE 107 mmol/L (98-107); GLUCOSE 75 mg/dL (75-110); POTASSIUM 3.1 mmol/L (3.6-5.0); TOTAL PROTEIN 6.1 g/dL (6.3-8.2); URIC ACID 4.7 mg/dL (2.5-6.2)
[2019-03-15] MEDS ORDERED: PROPOFOL INJ 200 MG/20 ML VIAL IV ONE (23:35)
[2019-03-15] MEDS ORDERED: MIDAZOLAM 2 MG/2 ML INJ ONE (23:35)
[2019-03-15] MEDS ORDERED: SUCCINYLCHOLINE CHLORIDE INJ 200 MG/10 ML VIAL ONE (23:36)
[2019-03-15] MEDS ORDERED: HYDROMORPHONE HCL INJ/PF 2 MG/ML AMPULE ONE (23:36)
[2019-03-15] MEDS ORDERED: ONDANSETRON HCL INJ/PF 4 MG/2 ML SDV ONE (23:36)
[2019-03-15] MEDS ORDERED: AZITHROMYCIN INJ 500 MG VIAL IV ONE (23:37)
[2019-03-15] MEDS ORDERED: CEFAZOLIN INJ 1 GM VIAL ONE (23:37)
[2019-03-15] MEDS ORDERED: CITRIC ACID/SODIUM CITRATE ORAL SOLN 15 ML UDCUP ONE (23:38)
--- NOTE | 2019-03-15 23:40 | Admission Physical ---
Datetime Report Generated by CPN: 03/15/2019 23:39 CURRENT ADMISSION Chief Complaint: Suspected Ruptured Membranes Admit Impression : Active Labor; Ruptured Membranes Admit Plan: Initiate Labor Protocol; Initiate Labor Augmentation Protocol ALLERGIES Medication Allergies: No Medication Allergies: No Known Allergies (03/15/2019) Latex: No Latex Allergies OBSTETRICAL HISTORY EDC: 03/12/2019 00:00 : 1 Para: 0 Term: 0 : 0 SAB: 0 IAB: 0 Ectopic: 0 Livin Cesareans: 0 VBACs: 0 Multiple Births: 0 Gestational Diabetes: No Rh Sensitization: No Incompetent Cervix: No MICK: No Infertility: No ART Treatment: No Uterine Anomaly: No IUGR: No Hx Previous C/S: No Macrosomia: No Hx Loss/Stillborn: No PIH: No Hx : No Placenta Previa/Abruption: No Depression/PP Depression: No PTL/PROM: No Post Hemorrhage: No Current Procedures: Ultrasound Obstetrical History Comments: g1 - current SEE RECORDS Alcohol: No Marijuana : No Cocaine: No Other Illicit Drugs: No Cigarettes: Never Smoker. [id number] MEDICAL HISTORY Diabetes: No Blood Transfusion: No Pulmonary Disease (Asthma, TB): No Breast Disease: No Hypertension: No Aperture Mask Etcher Surgery: No Heart Disease: No Hosp/Surgery: No Autoimmune Disorder: No Anesthetic Complications: No Kidney Disease: No Abnormal Pap Smear: No Neuro/Epilepsy: No Psychiatric Disorders: No Other Medical Diseases: Yes Hepatitis/Liver Disease: No Significant Family History: No Varicosities/Phlebitis: No Trauma/Violence : No Thyroid Dysfunction: No Medical History Comments: MRSA (Annotations: Data stored by N on behalf of user) INFECTIOUS HISTORY Gonorrhea: No Genital Herpes: No Chlamydia: No Tuberculosis: No Syphilis: No Hepatitis: No HIV/AIDS Exposure: No Rash or Viral Illness: No HPV: No PHYSICAL EXAM General: Normal HEENT: Normal Neurologic: Normal Thyroid: Normal Heart: Normal Lungs: Normal Breast: Normal Back: Normal Abdomen: Normal Genitourinary Exam: Normal Extremities: Normal DTRs: Normal Pelvic Type: Adequate Physical Exam Comments: Physical assessment was normal on admission other than pitting 1+ edema BLE. She then had change in LOC with intermittent periods where she was unable to answer questions or repond but eyes remained open and pulse/respiratoins intact. B/p mildly elevated. Vital Signs: Reviewed Details Vital Signs: Maternal and tachycardia VAGINAL EXAM Dilatation: 6 Effacement: 90 Station: -2 Contraction Comments: Q 3 minutes MEMBRANES Pooling: Positive Membranes: Ruptured Amniotic Fluid Color: Meconium, Heavy FETUS A EGA: 40.3 Monitoring: External US FHR- Baseline: 180 Variability: Minimal - Undetectable to <=5bpm Accelerations: Absent Decelerations: Variable FHR Category: Category II Presentation: Vertex Presentation- Other: vertex Admit Comment: 18 yo G1 at 40.5 wks EGA with SROM , active labor and now eclampsia (brief intermittent seizure activity) -Will plan for Primary CD as she is remote from delivery. -Start second IV -large bore. Continue Mag sulfate drip -Ancef 2 gms and azithromycin 500mg IV both prior to OR. -Abdominal prep -Consent signed after risks and benefits discussed with her mother and her. PLANS FOR LABOR AND DELIVERY Pain Management: Epidural Feeding Preference: Breast Benefit of Breast Feed Discussed: Yes Circumcision: N/A INFORMED CONSENT Informed Consent Obtained: Section Delivery; Risks, Benefits and Alternatives Discussed Signature: with User ID: Agnes : with User ID: [email or web address]
[2019-03-16] MEDS ORDERED: AMPICILLIN SODIUM 2 GM in NORMAL SALINE 100 ML IV SCH ×2
[2019-03-16 00:54] LABS: UR PRO/CREAT RATIO RESULT 0.9 mg/mg (0.0-0.2); URINE CREATININE 58.6 mg/dL (16-327); URINE PROTEIN 54.4 mg/dL (<12)
--- NOTE | 2019-03-16 01:22 | Operative Report ---
Operative Report DATE OF SURGERY: 03/16/19 Operative Report: Primary Delivery PREOPERATIVE DIAGNOSIS: IUP at 40.5 wks EGA. PROM. Non-reassuring heart tracing: Minimal variability and tachycardia. New onset eclampsia. Severe anemia complicating POSTOPERATIVE DIAGNOSIS: IUP at 40.5 wks EGA. PROM. Non-reassuring heart tracing: Minimal variability and tachycardia. New onset eclampsia. Severe anemia complicating . Meconium stained amniotic fluid OPERATION: Primary section SURGEON: JAGDISH ALBARADO ANESTHESIA: GA TISSUE REMOVED OR ALTERED: Placenta to pathology COMPLICATIONS: None ESTIMATED BLOOD LOSS: 600cc INTRAOPERATIVE FINDINGS: Normal appearing uterus, bilateral fallopian tube and ovaries. Viable female . Meconium stained Fluid-moderate amount PROCEDURE: IV fluids: per anesthesia record Urinary output: 300 cc Findings: Normal-appearing uterus bilateral fallopian tubes and ovaries. Placenta normal grossly. Viable female . Position: To recovery room in stable condition Description of procedure: The patient was taken to the operating room and general anesthesia was administered and found to be adequate. She was then placed on the OR table in the supine position with a slight leftward tilt. Patient was prepped and draped in usual sterile fashion. Ancef 2 gms was given IV prior to the procedure for infection prophylaxis along with Azithromycin 500mg IV x1. Timeout was taken. A Pfannenstiel skin incision was then made approximately 3 cm above the pubic symphysis and carried down to level the rectus fascia. The rectus fascia was then nicked in the midline with a scalpel and the fascial incision was extended laterally with use of curved Shaikh scissors. The rectus fascia was then grasped with 2 Kocker clamps elevated and the underlying rectus muscle was dissected off both bluntly and sharply. Any bleeding controlled with cautery. The rectus muscles were then split in the midline and the peritoneum was entered. The peritoneal incision was then extended by manually stretching the peritoneum. The bladder blade was positioned. The bladder was noted to be out of harm's way. A scalpel was then used in the lower uterine for the hysterotomy, slowly until amniotomy was obtained: meconium fluid was noted. The uterine incision was then manually stretched. The was noted to be in vertex postion OP and-deep in the pelvis. Using a hand deep in pelvis, the head was elevated and brought to the hysterotomy incision. The head then delivered with minimal difficulty. The shoulders and the rest of the body followed immediately. The cord was cut clamped and the infant was handed off to the nurse awaiting. The placenta was manually delivered. Using a lap gauze the uterus was cleared of all clots and debris. The uterus was then exteriorized and a bladder blade was repositioned. The uterine incision was then closed with 0 Chromic suture in a running locked fashion. A second layer of the same suture was used in a running locked imbricated fashion. The uterine incision was inspected and noted to be hemostatic. Retractor was removed. The posterior aspect of the uterus was then inspected and anatomy was seen as above. The uterus was returned to its normal anatomic position within the abdominal cavity. Warm saline irrigation was used to clear all clots and debris from the abdomen. The uterine incision was inspected once more and noted to remain hemos tatic. The bladder blade was removed and the peritoneum was closed with 2-0 chromic in a running fashion. The rectus muscles were then reapproximated and the rectus fascia was closed with a #0 PDS in a running fashion. The subcutaneous tissue was then inspected and any bleeding was controlled with Bovie electrocautery. The subcutaneous tissue was then closed with 2-0 Plain Gut suture in a running fashion. The skin was then closed with 4-0 Monocryl in a running subcuticular fashion. The skin incision was then clean dried and Dermabond was applied over the skin incision. All instrument sponge and needle counts were correct x3 for the procedure the patient tolerated the procedure well. She will proceed to recovery room in stable condition
[2019-03-16] MEDS ORDERED: ACETAMINOPHEN 1,000 MG/100 ML RTUPB IV ONE (01:55)
[2019-03-16] MEDS ORDERED: GENTAMICIN SULFATE INJ 80 MG/2 ML VIAL IV PRN (02:00)
[2019-03-16] MEDS ORDERED: GENTAMICIN SULFATE 140 MG in DEXTROSE 5%-WATER 100 ML IV SCH (02:00)
[2019-03-16] MEDS ORDERED: ACETAMINOPHEN 325 MG TABLET ONE (02:05)
[2019-03-16] MEDS ORDERED: PENICILLIN G-K 5 MILLION UNIT VIAL ONE (02:06)
[2019-03-16] MEDS ORDERED: MAGNESIUM SULFATE 0 GM/0 ML RTUPB IV ONE (02:06)
[2019-03-16] MEDS ORDERED: MAGNESIUM SULFATE 0 GM/0 ML RTUINJ IV ONE (02:06)
[2019-03-16] MEDS ORDERED: DEXTROSE 5%-LACTATED RINGERS 1,000 ML IV PRN ×2 (02:24→19:28)
[2019-03-16] MEDS ORDERED: MEASLES,MUMPS&RUBELLA VACC/PF 0.5 ML VIAL SUBCUT PRN (02:28)
[2019-03-16] MEDS ORDERED: DIPH/PERTUSS(ACELL)/TETANUS VAC/PF 0.5 ML SYR (>=10YO) IM PRN (02:28)
[2019-03-16] MEDS ORDERED: ACETAMINOPHEN 325 MG TABLET PO PRN (02:28)
[2019-03-16] MEDS ORDERED: OXYTOCIN/NORMAL SALINE 20 UNIT/1,000 ML RTUINJ IV PRN (02:28)
[2019-03-16] MEDS ORDERED: OXYCODONE-ACETAMINOPHEN 5-325 MG TABLET PO PRN (02:28)
[2019-03-16] MEDS ORDERED: PROMETHAZINE HCL INJ 25 MG/1 ML VIAL IV PRN (02:28)
[2019-03-16] MEDS ORDERED: SIMETHICONE 80 MG TAB.CHEW PO PRN (02:28)
[2019-03-16] MEDS ORDERED: ACETAMINOPHEN 1,000 MG/100 ML RTUPB IV PRN (02:29)
[2019-03-16] MEDS ORDERED: PENICILLIN G POTASSIUM 2,500,000 UNIT in DEXTROSE 5%-WATER 50 ML IV SCH (04:00)
[2019-03-16] MEDS ORDERED: OXYCODONE-ACETAMINOPHEN 5-325 MG TABLET ONE (04:18)
[2019-03-16] MEDS: OXYCODONE-ACETAMINOPHEN 5-325 MG TABLET PO PRN (04:21)
[2019-03-16] MEDS ORDERED: CEFAZOLIN SODIUM 2 GM in DEXTROSE 5%-WATER 100 ML IV SCH (06:00)
[2019-03-16] MEDS ORDERED: MAGNESIUM SULFATE 20 GM/500 ML RTUINJ IV ONE ×2 (08:21→18:15)
[2019-03-16 08:48] LABS: HEMATOCRIT 26.7 % (36.0-47.0); HEMOGLOBIN 8.5 g/dL (12.0-15.5); MEAN CORPUSCULAR HEMOGLOBIN 25.7 pg (27.0-33.4); MEAN CORPUSCULAR HGB CONC 31.9 g/dL (32.0-36.0); MEAN CORPUSCULAR VOLUME 81 fl (80-97); PLATELET COUNT 256 10^3/uL (150-450); RED BLOOD COUNT 3.31 10^6/uL (3.72-5.28); RED CELL DISTRIBUTION WIDTH 18.5 % (11.5-14.0); WHITE BLOOD COUNT 14.7 10^3/uL (4.0-10.5)
[2019-03-16] MEDS ORDERED: HYDROMORPHONE HCL INJ/PF 2 MG/ML AMPULE ONE ×3 (09:19→15:31)
[2019-03-16] MEDS: HYDROMORPHONE HCL INJ/PF 2 MG/ML AMPULE IV PRN ×3 (09:32→15:56)
[2019-03-16] MEDS: DOCUSATE SODIUM 100 MG CAPSULE PO SCH ×2 (09:35→18:27)
[2019-03-16] MEDS ORDERED: PRENATAL VITAMIN W DHA CAPSULE PO ONE (09:38)
[2019-03-16] MEDS: PRENATAL VITAMIN W DHA CAPSULE PO SCH (09:40)
[2019-03-16] MEDS: KETOROLAC TROMETHAMINE INJ/PF 30 MG/1 ML SDV IV SCH ×3 (09:46→21:50)
[2019-03-16] MEDS ORDERED: KETOROLAC TROMETHAMINE INJ/PF 30 MG/1 ML SDV ONE (14:05)
[2019-03-16] MEDS ORDERED: DIAZEPAM INJ 10 MG/2 ML DISP.SYRIN ONE (16:04)
[2019-03-16] MEDS ORDERED: LORAZEPAM INJ 2 MG/1 ML VIAL ONE (16:30)
[2019-03-16] MEDS ORDERED: LEVETIRACETAM 1000 MG/NACL-ISO 1,000 MG/100 ML RTUPB IV ONE ×2 (16:48→18:30)
--- NOTE | 2019-03-16 18:12 | RADIOLOGY REPORT (SQ) ---
EXAM DESCRIPTION: CT HEAD WITHOUT COMPLETED DATE/TIME: 03/16/2019 6:01 pm REASON FOR STUDY: having seizures COMPARISON: None. TECHNIQUE: Axial images acquired through the brain without intravenous contrast. Images reviewed wi th bone, brain and subdural windows. Additional sagittal and coronal reconstructions were generated. Images stored on PACS. All CT scanners at this facility use dose modulation, iterative reconstruction, and/or weight based d osing when appropriate to reduce radiation dose to as low as reasonably achievable (ALARA). [facility]: Dose Right [facility]: CareDose [facility]: Dose Right [facility]: Teradose 4D [facility]: [employer] RADIATION DOSE: CT Rad equipment meets quality standard of care and radiation dose reduction techniq ues were employed. CTDIvol: 53.2 mGy. DLP: 1017 mGy-cm. mGy. LIMITATIONS: None. FINDINGS: VENTRICLES: Normal size and contour. CEREBRUM: No masses. No hemorrhage. No midline shift. No evidence for acute infarction. Normal gra y/white matter differentiation. No areas of low density in the white matter. CEREBELLUM: No masses. No hemorrhage. No alteration of density. No evidence for acute infarction. EXTRAAXIAL SPACES: No fluid collections. No masses. ORBITS AND GLOBE: No intra- or extraconal masses. Normal contour of globe without masses. CALVARIUM: No fracture. PARANASAL SINUSES: No fluid or mucosal thickening. SOFT TISSUES: No mass or hematoma. OTHER: No other significant finding. IMPRESSION: NO ACUTE INTRACRANIAL IMAGING FINDINGS. EVIDENCE OF ACUTE STROKE: NO. COMMENT: Quality ID # [id number]: Final reports with documentation of one or more dose reduction techniques (e.g., Automated exposure control, adjustment of the mA and/or kV according to patient size, use of iterative reconstruction technique) TECHNICAL DOCUMENTATION: JOB ID: [id number] [email or web address]- All Rights Reserved Reading location - IP/workstation name: ED
[2019-03-16] MEDS ORDERED: LEVETIRACETAM 500 MG TABLET PO ONE (22:30)
[2019-03-16] MEDS: LEVETIRACETAM 500 MG TABLET PO SCH (22:47)
[2019-03-17] MEDS ORDERED: KETOROLAC TROMETHAMINE INJ/PF 30 MG/1 ML SDV ONE ×2 (05:32→13:26)
[2019-03-17] MEDS: KETOROLAC TROMETHAMINE INJ/PF 30 MG/1 ML SDV IV SCH ×2 (05:41→13:28)
--- NOTE | 2019-03-17 09:29 | PDOC PROGRESS REPORT ---
Subjective Progress Note for:: 03/17/19 Subjective:: Doing well this am . No complaints. Denies DUMONT, CP, SOB, RUQ pain, vision changes or n/v. Passing gas. Tolerating PO well. Vaginal bleeding light to moderate NO seizure activity since Keppra started. Reason For Visit: Physical Exam - Physical Exam Vital Signs: Intake & Output 03/16/19 03/17/19 03/18/19 06:59 06:59 06:59 Weight 97.3 kg General appearance: PRESENT: no acute distress, cooperative Respiratory exam: PRESENT: clear to auscultation katy Cardiovascular exam: PRESENT: RRR, +S1, +S2 GI/Abdominal exam: PRESENT: normal bowel sounds - Abd soft, incision dry and intact Neurological exam: PRESENT: alert, oriented to person, oriented to place, oriented to time, reflexes normal Psychiatric exam: PRESENT: appropriate affect Skin exam: PRESENT: warm - Obstetrical Exam Fundal Height: u/u - u/2 Result Laboratory Results: 03/16/19 08:31 03/15/19 22:52 03/16/19 08:31 Magnesium 3.7 H Impressions: Head CT 03/16/19 16:48 IMPRESSION: NO ACUTE INTRACRANIAL IMAGING FINDINGS. EVIDENCE OF ACUTE STROKE: NO. Assessment & Plan - Diagnosis (1) Eclampsia Is this a current diagnosis for this admission?: Yes Plan: Denies DUMONT, CP, SOB, RUQ pain, vision changes or n/v. NO seizure activity since Keppra started. CT head negative. Continue Care. (2) PIH ( induced hypertension) Is this a current diagnosis for this admission?: Yes Plan: NOrmotensive today - Time Time Spent with patient: 15-24 minutes Medications reviewed and adjusted accordingly: Yes Within: within 48 hours Disposition: Stable without seizure activity overnight. POD # 1 Likely to pp floor today and discharge POD #3
[2019-03-17] MEDS ORDERED: DOCUSATE SODIUM 100 MG CAPSULE ONE ×2 (09:54→17:49)
[2019-03-17] MEDS ORDERED: PRENATAL VITAMIN W DHA CAPSULE PO ONE (09:54)
[2019-03-17] MEDS: LEVETIRACETAM 500 MG TABLET PO SCH (09:59)
[2019-03-17] MEDS: DOCUSATE SODIUM 100 MG CAPSULE PO SCH ×2 (09:59→17:54)
[2019-03-17] MEDS: PRENATAL VITAMIN W DHA CAPSULE PO SCH (09:59)
[2019-03-17] MEDS: VANCOMYCIN HCL 1,000 MG in DEXTROSE 5%-WATER 250 ML IV SCH ×2 (12:22→18:22)
[2019-03-17] MEDS ORDERED: OXYCODONE-ACETAMINOPHEN 5-325 MG TABLET ONE (13:26)
[2019-03-17] MEDS: OXYCODONE-ACETAMINOPHEN 5-325 MG TABLET PO PRN ×2 (13:28→19:27)
--- NOTE | 2019-03-17 13:44 | Operative Report ---
Operative Report DATE OF SURGERY: 03/17/19 PREOPERATIVE DIAGNOSIS: ulcer right upper outer arm with necrotic tissue POSTOPERATIVE DIAGNOSIS: Same OPERATION: Sharp debridement of left upper arm ulcer SURGEON: BALAJI HADDAD ANESTHESIA: Other TISSUE REMOVED OR ALTERED: Necrotic tissue sent for C&S COMPLICATIONS: None ESTIMATED BLOOD LOSS: 1cc QUANTITATIVE BLOOD LOSS: 1 INTRAOPERATIVE FINDINGS: Yellowish necrotic tissue on the surface of the ulcer at the subcu level PROCEDURE: With the use of scalpel necrotic tissue on the ulcer was then debrided. The ulcer roughly measured about 1 x 1 cm. The depth of the ulcer which is at the subcutaneous level. Practically all of the necrotic tissue was removed and it was sent for culture. The blood on the ulcer was dotted off with 4 x 4 and Band-Aids applied over the ulcer. Patient has another ulcer on the left upper back which was noted to to be quite shallow without any evidence of abscess. There is no obvious need for debridement of this ulcer site. Patient was then placed on IV vancomycin 1 g IV every 12 hours until we get the culture results. Patient has history of MRSA infection.
[2019-03-17] MEDS ORDERED: LORAZEPAM INJ 2 MG/1 ML VIAL ONE (21:05)
--- NOTE | 2019-03-17 21:25 | PDOC PROGRESS REPORT ---
Subjective Progress Note for:: 03/17/19 Subjective:: called to bedside for another absence seizure despite Keppra load IV yesterday and BID Keppra po Reason For Visit: Physical Exam - Physical Exam Vital Signs: Temp Pulse Resp BP Pulse Ox 97.7 F 89 18 136/91 H 99 03/17/19 18:00 03/17/19 18:00 03/17/19 18:00 03/17/19 18:00 03/17/19 18:00 Intake & Output 03/16/19 03/17/19 03/18/19 06:59 06:59 06:59 Intake Total 550 Balance 550 Weight 97.3 kg General appearance: PRESENT: well-developed, well-nourished, other - now post ictal Head exam: PRESENT: atraumatic, normocephalic Neck exam: PRESENT: full ROM. ABSENT: carotid bruit, JVD, lymphadenopathy, thyromegaly Cardiovascular exam: PRESENT: RRR. ABSENT: diastolic murmur, rubs, systolic murmur Vascular exam: PRESENT: normal capillary refill GI/Abdominal exam: PRESENT: normal bowel sounds, soft, other - section. ABSENT: distended, guarding, mass, organolmegaly, rebound, tenderness Rectal exam: PRESENT: deferred Extremities exam: PRESENT: full ROM. ABSENT: calf tenderness, clubbing, pedal edema Neurological exam: PRESENT: other - sedated, now post ictal. ABSENT: motor sensory deficit Psychiatric exam: PRESENT: other. ABSENT: homicidal ideation, suicidal ideation Skin exam: PRESENT: dry, intact, warm. ABSENT: cyanosis, rash Result Laboratory Results: 03/16/19 08:31 03/15/19 22:52 03/17/19 07:17 Blood Type O NEGATIVE Impressions: Head CT 03/16/19 16:48 IMPRESSION: NO ACUTE INTRACRANIAL IMAGING FINDINGS. EVIDENCE OF ACUTE STROKE: NO. Status: Imported from PACS Assessment & Plan - Diagnosis (1) Eclampsia Is this a current diagnosis for this admission?: Yes Plan: pt came in for suspected PROM on 03/15 at 40+5ega, SROM. Upon eval by patient was noted to have absence type seizure. Dx was made at that time that was eclampsia and urgent section was performed and she was placed on Magnesium with diuresis. Pressures were normal to very mild. No severe range documented. P:C ratio was 0.9 but patient was SROM with bleeding. Labs were normal. Pt then seized again absence in nature on 03/16 while on mag and on spoke with [facility] Neuro who recommended that patient be intiated on Keppra (IV loading dose given) and then on po 500mg BID. Pt did well today with continued normal BPs. Off mag sulfate since 24 hours pp and was transferred to the floor. Was called a short time ago due to another absence type seizure (started approx 2044) I was called at 2101 and WOOLEN TESTER called. 2mg Ativan given at 2107. Pt is now post ictal but responds to commands. Transfer to ICU awaiting transfer to [facility] to Dr. Varela with Neuro Dr. Holly consult. Appreciate Dr. Guevara assistance Will restart Mag for transfer although this is very atypical for Eclampsia type seizures and illness course (2) Absence seizure, atypical Is this a current diagnosis for this admission?: Yes Plan: these seizures appear very atypical for Eclampsia. Spoke with Dr. Holly who advised to increase Keppra to 1000mg BID (3) MRSA (methicillin resistant Staphylococcus aureus) infection Is this a current diagnosis for this admission?: Yes Plan: Vancomycin BID 1000mg IV until cx return. DR Mcgee consulted. Contact precautions - Time Time Spent with patient: 35 or more minutes Medications reviewed and adjusted accordingly: Yes Anticipated discharge: Tertiary Hospital Within: Other - now - Inpatient Certification Based on my medical assessment, after consideration of the patient's comorb idities, presenting symptoms, or acuity I expect that the services needed warrant INPATIENT care.: Yes I certify that my determination is in accordance with my understanding of Medicare's requirements for reasonable and necessary INPATIENT services [42 CFR 412.3e].: Yes Medical Necessity: Need Close Monitoring Due to Risk of Patient Decompensation, Need For IV Fluids, Need for Neurological Checks Post Hospital Care: D/C Psychologist [employer] Documentation
[2019-03-17 21:31] VITALS: BP 138/81
[2019-03-17] MEDS ORDERED: MAGNESIUM SULFATE 20 GM/500 ML RTUINJ IV PRN (21:48)
[2019-03-17] MEDS ORDERED: HYDRALAZINE HCL INJ/PF 20 MG/1 ML SDV IV PRN (22:12)
--- NOTE | 2019-03-17 22:12 | PDOC CONSULTATION ---
Consultation Consult Date: 03/17/19 Attending physician:: JAGDISH ALBARADO Provider Consulted: ABBY COPPOLA Consult reason:: Seizures History of Present Illness Admission Date/PCP: 03/15/19 22:33 Patient complains of: Rapid response for persistent seizure activity History of Present Illness: DARLINE MENSAH is a 18 year old female who came to obstetrics on 03/15/2019 after spontaneous rupture of membranes at home for evaluation and treatment. At the time she presented she was noted to be hypertensive with peripheral edema and lethargy. She was treated with mag sulfate for preeclampsia and subsequently had a for delivery. She was continued on mag sulfate but has had seizures of a atypical nature being primarily absence seizures with some tremors associated but no tonic-clonic activity. She was treated with Keppra IV but has continued to seize despite therapy. An acute seizure episode occurred this evening but was responsive to IV Ativan. The patient is postictal and unable to provide meaningful input for further historical data. Past Medical History Cardiac Medical History: Denies: Coronary Artery Disease, Hypertension Pulmonary Medical History: Denies: Asthma, Chronic Obstructive Pulmonary Disease (COPD) EENT Medical History: Reports: None Neurological Medical History: Denies: Multiple Sclerosis, Seizures Endocrine Medical History: Reports: Obesity Denies: Diabetes Mellitus Type 1, Hyperthyroidism, Hypothyroidism Renal/ Medical History: Denies: Chronic Kidney Disease, Nephrolithiasis Malignancy Medical History: Reports: None GI Medical History: Denies: Cirrhosis, Hepatitis Musculoskeltal Medical History: Denies: Arthritis, Fibromyalgia Skin Medical History: Denies: Eczema, Psoriasis Psychiatric Medical History: Denies: Alcohol Dependency, Substance Abuse, Tobacco Dependency Traumatic Medical History: Reports: None Hematology: Denies: Anemia, Bleeding Tendencies Infectious Medical History: Reports: None Past Surgical History Past Surgical History: Reports: Section - 03/15/2019 Social History Information Source: [facility] Records Lives with: Spouse/Significant other Smoking Status: Never Smoker Electronic Cigarette use?: No Frequency of Alcohol Use: None Hx Recreational Drug Use: No Drugs: None Hx Prescription Drug Abuse: No - Advance Directive Resuscitation Status: Full Code Family History Family History: Could not be reviewed with the patient at this time due to postictal state. Parental Family History Reviewed: No Children Family History Reviewed: No Sibling(s) Family History Reviewed.: No Medication/Allergy Home Medications: Vit,Calc76/Iron/Folic [Pnv 29-1 Tablet] 1 tab PO DAILY 12/01/18 Allergies/Adverse Reactions: No Known Allergies Allergy (Verified 03/15/19 23:15) Review of Systems ROS unobtainable: Due to mental status - Postictal state after receiving IV At [place] Physical Exam Vital Signs: Temp Pulse Resp BP Pulse Ox 98.7 F 115 H 26 H 138/81 H 98 03/17/19 21:30 03/17/19 21:30 03/17/19 21:30 03/17/19 21:30 03/17/19 21:30 Intake & Output 03/15/19 03/16/19 03/17/19 23:59 23:59 23:59 Intake Total 550 Balance 550 Weight 97.3 kg General appearance: PRESENT: no acute distress, other - Mildly obtunded and postictal state Head exam: PRESENT: atraumatic, normocephalic Eye exam: PRESENT: conjunctiva pink. ABSENT: conjunctival injection, scleral icterus Ear exam: PRESENT: normal external ear exam. ABSENT: bleeding, drainage Neck exam: ABSENT: thyromegaly, tracheal deviation Respiratory exam: PRESENT: clear to auscultation katy, symmetrical, unlabored Cardiovascular exam: PRESENT: RRR. ABSENT: clicks, gallop, rubs Pulses: PRESENT: normal radial pulses, normal dorsalis pedis pul Vascular exam: PRESENT: normal capillary refill. ABSENT: pallor GI/Abdominal exam: PRESENT: normal bowel sounds, soft, other - Post gravid uterus is noted, incision clean and dry Rectal exam: PRESENT: deferred Extremities exam: PRESENT: +1 edema - Bilateral pretibial edema trace to 1+. ABSENT: joint swelling Musculoskeletal exam: ABSENT: deformity, dislocation Neurological exam: PRESENT: altered - Mildly obtunded, CN II-XII grossly intact Psychiatric exam: PRESENT: other - Obtunded secondary to medications Skin exam: PRESENT: dry, intact, warm. ABSENT: jaundice, rash, urticaria Results Laboratory Results: 03/16/19 08:31 03/15/19 22:52 03/17/19 07:17 Blood Type O NEGATIVE Impressions: Head CT 03/16/19 16:48 IMPRESSION: NO ACUTE INTRACRANIAL IMAGING FINDINGS. EVIDENCE OF ACUTE STROKE: NO. Assessment and Plan - Diagnosis (1) Absence seizure, atypical Is this a current diagnosis for this admission?: Yes Plan: Patient's episode seizures will be treated with intravenous Ativan 2 mg nightly hour as required for control of seizure activity. Patient will be transferred to the ICU pending eventual transfer to [place] for further evaluation and neurologic care. (2) Eclampsia Is this a current diagnosis for this admission?: Yes Plan: Patient was on mag sulfate for ~48 hours . This point she has been taken off of mag sulfate which she will be observed closely for evidence of hyper reflexivity, increasing edema or other signs associated with eclampsia. Blood pressure be closely monitored throughout her ICU course. (3) PIH ( induced hypertension) Qualifiers: Trimester: third trimester Qualified Code(s): O13.3 - Gestational [-induced] hypertension without significant proteinuria, third trimester Is this a current diagnosis for this admission?: Yes Plan: Patient's blood pressure be monitored closely throughout her ICU course. Hydralazine 20 mg IV every 4 hours will be administered for systolic pressures greater than 140 or diastolic pressures greater than 90. (4) MRSA (methicillin resistant Staphylococcus aureus) infection Is this a current diagnosis for this admission?: Yes Plan: Patient will be continued on vancomycin as per the recommendation of the surgicalist. - Time Time Spent with patient: 25-34 minutes Anticipated discharge: [facility]
[2019-03-17] MEDS ORDERED: LORAZEPAM INJ 2 MG/1 ML VIAL IV PRN (22:13)
[2019-03-17] MEDS ORDERED: LEVETIRACETAM 500 MG TABLET PO ONE (23:00)
--- NOTE | 2019-03-18 | PDOC TRANSFER SUMMARY ---
General Admission Date/PCP: 03/15/19 22:33 Admission Date: 03/15/19 Transfer Date: 03/17/19 Accepting Facility: [facility] Accepting Physician: Effie Varela MD OBGYN Resuscitation Status: Full Code - Transfer Diagnosis (1) Eclampsia Is this a current diagnosis for this admission?: Yes Diagnosis Summary: pt came in for suspected PROM on 03/15 at 40+5ega, SROM. Upon eval by MD patient was noted to have absence type seizure. Dx was made at that time that was eclampsia and urgent section was performed and she was placed on Magnesium with diuresis. Pressures were normal to very mild. No severe range documented. P:C ratio was 0.9 but patient was SROM with bleeding. Labs were normal. Pt then seized again absence in nature on 03/16 while on mag and MD on spoke with [facility] Neuro who recommended that patient be intiated on Keppra (IV loading dose given) and then on po 500mg BID. Pt did well today with continued normal BPs. Off mag sulfate since 24 hours pp and was transferred to the floor. Was called a short time ago due to another absence type seizure (started approx 2044) I was called at 2101 and GUEST SERVICES AGENT called. 2mg Ativan given at 2107. Pt is now post ictal but responds to commands. Transfer to ICU awaiting transfer to [facility] to Dr. Varela with Neuro Dr. Holly consult. Appreciate Dr. Guevara assistance Will restart Mag for transfer although this is very atypical for Eclampsia type seizures and illness course (2) Absence seizure, atypical Is this a current diagnosis for this admission?: Yes Diagnosis Summary: these seizures appear very atypical for Eclampsia. Spoke with Dr. Holly who advised to increase Keppra to 1000mg BID (3) MRSA (methicillin resistant Staphylococcus aureus) infection Is this a current diagnosis for this admission?: Yes Diagnosis Summary: Vancomycin BID 1000mg IV until cx return. DR Mcgee consulted. Contact precautions - Transfer Medications Home Medications: Vit,Calc76/Iron/Folic [Pnv 29-1 Tablet] 1 tab PO DAILY 12/01/18 Transfer Medications: Current Medications Docusate Sodium (Colace 100 Mg Capsule) 100 mg PO BID QUINTON Stop: 04/15/19 09:59 Last Admin: 03/17/19 17:54 Dose: 100 mg Documented by: Hydralazine HCl (Apresoline Inj/Pf 20 Mg/1 Ml Sdv) 20 mg IV Q4HP PRN PRN Reason: Give For Sbp > 140 / Dbp > 90 Stop: 04/16/19 22:11 Hydromorphone HCl (Dilaudid Inj/Pf 2 Mg/Ml Ampule) 2 mg IV Q3HP PRN PRN Reason: FOR PAIN SCALE 4-5 Stop: 03/23/19 02:28 Last Admin: 03/16/19 15:56 Dose: 2 mg Documented by: Dextrose/Lactated Ringer's (D5lr 1000 Ml Iv Soln) 1,000 mls @ 125 mls/hr IV CONTINUOUS PRN PRN Reason: THIS MED IS NOT "PRN" Stop: 04/15/19 19:27 Vancomycin HCl 1,000 mg/ (Dextrose) 250 mls @ 166.667 mls/hr IV Q8A [facility] Stop: 03/24/19 11:59 Last Admin: 03/17/19 18:22 Dose: 166.67 mls/hr, 166.67 mls/hr Documented by: Magnesium Sulfate (Magnesium Sulfate Rtu 20 Gm/500 Ml Premix) 20 gm in 500 mls @ 0 mls/hr IV CONTINUOUS PRN PRN Reason: THIS MED IS NOT "PRN" Stop: 04/16/19 21:47 Ketorolac Tromethamine (Toradol Inj/Pf 30 Mg/1 Ml Sdv) 30 mg IV Q8 [facility] Stop: 03/21/19 05:59 Last Admin: 03/17/19 13:28 Dose: 30 mg Documented by: Levetiracetam (Keppra 500 Mg Tablet) 1,000 mg PO Q12 [facility] Stop: 04/17/19 09:59 Lorazepam (Ativan Inj 2 Mg/1 Ml Vial) 2 mg IV Q1HP PRN PRN Reason: SEIZURES Stop: 03/24/19 22:12 Lorazepam (Ativan Inj 2 Mg/1 Ml Vial) 2 mg IV NOW ONE Stop: 03/17/19 23:54 Measles/Mumps/Rubella Vaccine Live (M-M-R Ii Vaccine Kit 0.5 Ml) 0.5 ml SUBCUT .DISCHARGE PRN PRN Reason: IF NON-IMMUNE Stop: 04/15/19 02:27 Oxycodone/Acetaminophen (Percocet 5-325 Mg Tablet) 1 tab PO Q4HP PRN PRN Reason: FOR PAIN SCALE 1-2 Stop: 03/23/19 02:27 Oxycodone/Acetaminophen (Percocet 5-325 Mg Tablet) 2 tab PO Q4HP PRN PRN Reason: FOR PAIN SCALE 3-5 Stop: 03/23/19 02:27 Last Admin: 03/17/19 19:27 Dose: 2 tab Documented by: Vit/Iron/Folic Acid/DHA ( Multi + Dha Capsule) 1 cap PO DAILY [place] Stop: 04/15/19 09:59 Last Admin: 03/17/19 09:59 Dose: 1 cap Documented by: Promethazine HCl (Phenergan Inj 25 Mg/1 Ml Vial) 25 mg IV Q6HP PRN PRN Reason: nausea and vomiting Stop: 04/15/19 02:27 Simethicone (Mylicon 80 Mg Chewable Tablet) 80 mg PO QIDP PRN PRN Reason: FOR GAS (FLATULENCE) Stop: 04/15/19 02:27 - Allergies Allergies/Adverse Reactions: No Known Allergies Allergy (Verified 03/15/19 23:15) - Diet/Activity Discharge Diet: As Tolerated Discharge Activity: Bedrest Hospital Course Hospital Course: pt came in for suspected PROM on 03/15 at 40+5ega, SROM. Upon eval by MD patient was noted to have absence type seizure. Dx was made at that time that was eclampsia and urgent section was performed and she was placed on Magnesium with diuresis. Pressures were normal to very mild. No severe range documented. P:C ratio was 0.9 but patient was SROM with bleeding. Labs were normal. Pt then seized again absence in nature on 03/16 while on mag and MD on spoke with [facility] Neuro who recommended that patient be intiated on Keppra (IV loading dose given) and then on po 500mg BID. Pt did well today with continued normal BPs. Off mag sulfate since 24 hours pp and was transferred to the floor. Was called a short time ago due to another absence type seizure (started approx 2044) I was called at 2101 and GUEST SERVICES AGENT called. 2mg Ativan given at 2107. Pt is now post ictal but responds to commands. Transfer to ICU awaiting transfer to [facility] to Dr. Varela with Neuro Dr. Holly consult. Appreciate Dr. Guevara assistance Will restart Mag for transfer although this is very atypical for Eclampsia type seizures and illness course Physical Exam Vital Signs: Temp Pulse Resp BP Pulse Ox 98.7 F 115 H 26 H 138/81 H 98 03/17/19 21:30 03/17/19 21:30 03/17/19 21:30 03/17/19 21:30 03/17/19 21:30 Intake & Output 03/16/19 03/17/19 03/18/19 06:59 06:59 06:59 Intake Total 550 Balance 550 Weight 97.3 kg General appearance: PRESENT: no acute distress, well-developed, well-nourished Head exam: PRESENT: atraumatic, normocephalic Respiratory exam: PRESENT: clear to auscultation katy. ABSENT: rales, rhonchi, wheezes Cardiovascular exam: PRESENT: RRR. ABSENT: diastolic murmur, rubs, systolic murmur GI/Abdominal exam: PRESENT: normal bowel sounds, soft, other - pfannensteil incision c/d/i. ABSENT: distended, guarding, mass, organolmegaly, rebound, tenderness Rectal exam: PRESENT: deferred Extremities exam: PRESENT: full ROM. ABSENT: calf tenderness, clubbing, pedal edema Neurological exam: PRESENT: other - post ictal at last assessment, stable airway. ABSENT: motor sensory deficit Psychiatric exam: PRESENT: appropriate affect, normal mood. ABSENT: homicidal ideation, suicidal ideation Skin exam: PRESENT: dry, intact, warm. ABSENT: cyanosis, rash Results Laboratory Results: 03/16/19 08:31 03/15/19 22:52 03/17/19 07:17 Blood Type O NEGATIVE Impressions: Head CT 03/16/19 16:48 IMPRESSION: NO ACUTE INTRACRANIAL IMAGING FINDINGS. EVIDENCE OF ACUTE STROKE: NO. Status: Imported from PACS Plan Discharge Plan: Transfer to [facility] so that Neuro can eval and treat patient.
[2019-03-18] MEDS ORDERED: LORAZEPAM INJ 2 MG/1 ML VIAL IV ONE (00:30)
[2019-03-18] MEDS ORDERED: LEVETIRACETAM 500 MG TABLET PO SCH (10:00)
--- NOTE | 2019-03-31 08:42 | Delivery Summary ---
Del Sum A-C Datetime Report Generated by CPN: 03/31/2019 08:42 DELIVERY PERSONNEL DELIVERY PERSONNEL: [id number] Delivery Doctor:: Nakita Mix MD Delivery Doctor:: Nakita Mix MD Anesthesiologist:: Vj Merritt MD Anesthesiologist:: Vj Merritt MD LIFT SUPERVISOR:: Rene Gonzalez CRNA LIFT SUPERVISOR:: Rene Gonzalez CRNA Quality Assurance Lab Technician:: s nataly Quality Assurance Lab Technician:: squinn Paraprofessional Aide/NON DESTRUCTIVE TESTING SPECIALIST: Aracely Green, ST Paraprofessional Aide/NON DESTRUCTIVE TESTING SPECIALIST: Aracely Green, ST Paraprofessional Aide/NON DESTRUCTIVE TESTING SPECIALIST: Giselleher Rosas, ST Paraprofessional Aide/NON DESTRUCTIVE TESTING SPECIALIST: Giselle Ross, ST MATERNAL INFORMATION Delivery Anesthesia: General Medications After Delivery: Pitocin Drip 20 Units/1000ml NSS Estimated Blood Loss (ml): 600 Delivery QBL: 390 Maternal Complications: Other Other Maternal Complications: eclampsia Provider Comments: Primary CS for non-reassuring FHT and new onset eclampsia. Magnesium sulfate bolus 4 gms and 2 gms / hr initiate. Primary CS done under general anesthesia See operative report for details of CS. LABOR SUMMARY EDC: 03/12/2019 00:00 No. Babies in Womb: 1 Attempted: No Labor Anesthesia: None LABOR INFORMATION Reason for Induction: Not Applicable Onset of Labor: 03/15/2019 21:00 Group B Beta Strep: positive Antibiotics # of Doses: 1 Steroids Given: None MEMBRANES Membranes Rupture Method: Spontaneous Membranes Rupture Method: Spontaneous Rupture of Membranes: 03/15/2019 21:00 Rupture of Membranes: 03/15/2019 21:00 Length of Rupture (hr): 3.13 Length of Rupture (hr): 3.13 Amniotic Fluid Color: Clear Amniotic Fluid Color: Heavy Meconium Amniotic Fluid Amount: Small Amniotic Fluid Amount: Moderate Amniotic Fluid Odor: None STAGES OF LABOR Stage 3 hr: 0 Stage 3 min: 1 Total Time in Labor hr: 3 Total Time in Labor min: 9 CSECTION DELIVERY Primary Indication: Nonreassuring Status Secondary Indication: Severe PIH, Unfavorable Cervix CSection Urgency: Emergency CSection Incidence: Primary Labor: Labor CSection Incision: Lower Uterine Transverse CSection Incision: Lower Uterine Transverse BABY A INFORMATION Infant Delivery Date/Time: 03/16/2019 00:08 Method of Delivery: Born in Route : No : N/A Forceps: N/A Vacuum Extraction: N/A Shoulder Dystocia : No PRESENTATION/POSITION BABY A Presentation: Cephalic Cephalic Presentation: Vertex Vertex Position: Left Occipital Posterior Breech Presentation: N/A PLACENTA INFORMATION BABY A Placenta Delivery Time : 03/16/2019 00:09 Placenta Method of Delivery: Manual Removal Placenta Status: Delivered SCORES BABY A Heart Rate 1 min: >100 bpm Resp Effort 1 min: Slow, Irregular Reflex Irritability 1 min: Cough or Sneeze or Pulls Away Muscle Tone 1 min: Active Motion Color 1 min: Blue/Pale Resuscitation Effort 1 min: Tactile Stimulation; Oxygen; PPV/NCPAP SCORE 1 MIN: 7 Heart Rate 5 min: >100 bpm Resp Effort 5 min: Good Cry Reflex Irritability 5 min: Cough or Sneeze or Pulls Away Muscle Tone 5 min: Active Motion Color 5 min: Blue/Pale Resuscitation Effort 5 min: Tactile Stimulation; Oxygen SCORE 5 MIN: 8 INFANT INFORMATION BABY A Gestational Age at Delivery: 40.3 Gestational Status: Full Term- 39- 40.6 Weeks Outcome : Liveborn Infant Condition : Stable Sex: Female IDENTIFICATION BABY A Verification Date/Time: 03/16/2019 00:30 ID Band Number: [id number] Mother's Name Verified: Yes Infant RN Verifying Infant: Zaki Ferraro RN Additional Verifying Personnel: Ping Sanchez RN (Annotations: Data stored by [facility] on behalf of user) CORD INFORMATION BABY A No. Cord Vessels: 3 Nuchal Cord : N/A Cord Blood Taken: Yes-For Eval (Mom's Blood Type - or O+) ASSESSMENT BABY A Infant Complications: Decreased Variability Skin to Skin: Yes Transferred To: Nursery SIGNATURES Signature: with User ID: Agnes : with User ID: [id number]
== END 2019-03-18 06:35 | disposition short-term general hospital (02) | DRG 787 ==
LOC: LC 22:04 → LR 22:33 → 2S 03-17 18:20 → ICU 03-17 22:09
PROVIDERS: ADMIT Obstetrics & Gynecology; ATTEND Obstetrics & Gynecology
PROC: 10D00Z1 Extraction of Products of Conception, Low, Open Approach (ICD-10-PCS; principal; 2019-03-16)
PROC: 0JBD0ZZ Excision of Right Upper Arm Subcutaneous Tissue and Fascia, Open Approach (ICD-10-PCS; 2019-03-17)
PROC: 3E0234Z Introduction of Serum, Toxoid and Vaccine into Muscle, Percutaneous Approach (ICD-10-PCS; 2019-03-17)
DX: O26.893 Other specified pregnancy related conditions, third trimester (principal); I96 Gangrene, not elsewhere classified; O99.713 Diseases of the skin and subcutaneous tissue complicating pregnancy, third trimester; Z67.41 Type O blood, Rh negative; O15.1 Eclampsia complicating labor; G40.A09 Absence epileptic syndrome, not intractable, without status epilepticus; B95.62 Methicillin resistant Staphylococcus aureus infection as the cause of diseases classified elsewhere; O99.214 Obesity complicating childbirth; O76 Abnormality in fetal heart rate and rhythm complicating labor and delivery; O99.02 Anemia complicating childbirth; O99.824 Streptococcus B carrier state complicating childbirth; D64.9 Anemia, unspecified; Z3A.40 40 weeks gestation of pregnancy; Z79.899 Other long term (current) drug therapy; Z37.0 Single live birth
CPT/HCPCS: 1961; 36415; 70450; 80053; 80307; 81005; 82570; 82962; 83605; 83615; 83735; 84156; 84550; 85025; 85027; 85461; 86592; 86850; 86870; 86900; 86901; 87070; 87077; 87186; 87205; 88307; 94760; 94799; J0131; J0290; J0330; J0456; J0690; J1170; J1580; J1885; J1953; J2060; J2250; J2405; J2540; J2590; J2704; J2790; J3360; J3370; J3475; J3490; J7050; J7060